=== PATIENT | male | born 1940 | race Caucasian/White ===

== ENCOUNTER 2024-02-09 09:58 | Emergency (ER) | payer MEDICARE, SELFPAY ==
[2024-02-09 10:01] VITALS: BP 207/86; PULSE 80; RESP 17; TEMP 36.8; O2SAT 98; BMI 29.6
[2024-02-09 10:05] VITALS: O2SAT 98
--- NOTE | 2024-02-09 11:34 | CT_ITS ---
INDICATION: head trauma EXAMINATION: CT BRAIN - CT Head or Brain W/O Contrast Injection TECHNIQUE: Multiple axial images were obtained of the head without intravenous contrast. The protocol utilizes one or more of the following dose reduction techniques: automated exposure control, adjustment of mA and/or kV according to patient size,and/or use of iterative reconstruction technique. IV Contrast dosage and agent: None. RADIATION DOSAGE (If Supplied By Facility): CTDIvol = ( 44.99 ) mGy, DLP = ( 779.24 ) mGycm COMPARISON: No relevant prior comparison study available FINDINGS: BRAIN PARENCHYMA: No intra- or extra-axial hemorrhage. No evidence of acute infarct. No intracranial mass or mass effect. There is preservation of the baldwin/white matter interface. Posterior fossa structures are unremarkable. CSF SPACES: Appropriate for age. No hydrocephalus. Basal cisterns are patent. CALVARIUM, SKULL BASE, PARANASAL SINUSES AND MASTOID AIR CELLS: Clear. No discrete lytic or blastic abnormalities. There is a small soft tissue defect associated with a focus of subcutaneous air overlying the left frontal calvarium with recent trauma. There is a nasal bone deformity. ORBITS: Both globes, extraocular muscles, optic nerves and retrobulbar fat appear unremarkable. ASPECTS Score for Acute Strokes: 10 CT/Brain/Head without Contrast IMPRESSION: No acute intracranial process. Nasal bone fracture. Electronically Signed: Rosa Trevizo MD at 12:24 EDT ,
--- NOTE | 2024-02-09 11:38 | EDS_ITS ---
HPI HPI - Fall History of Present Illness Chief Complaint: Fall Informant: patient Occured/Mechanism Occurred: Today Mechanism/Context: Yes same level fall and Yes trip Usually ambulates: Without assistance Pain/Injury Pain Location: head and face Quality of Pain: Dull Current Severity: Mild Maximum Severity: Mild Associated Symptoms Associated Symptoms: Negative for Parasthesias, Weakness, Loss of function, Inability to ambulate or Loss of consciousness Narrative Narrative: 83-year-old male was in his shop and he tripped and fell on the doorway. Fell and injured his forehead causing a laceration and injury to bridge of his nose. Denies any LOC or headache. Denies neck, chest or abdominal pain. Denies any hip pain. He states he is not on any blood thinners. Unsure of his last tetanus. Tetanus Immunization: Unknown Prior similar symptoms: No Recent Illness/Hospitalization: No PFSH PFSH Medical History no medical history no medical history Home Medications ?Medication ?Instructions ?Recorded ?Last Taken ?Type No Known/Unobtainable [No Known 09/15/15 Unknown History Home Medications] Allergy/AdvReac Type Severity Reaction Status Date / Time No Known Allergies Allergy Verified 02/09/24 10:09 Social History Smoking Status: Never smoker ROS ROS ED ROS Narrative Denies recent illness. Constitutional Constitutional ED: Denies chills or fever(s) Eyes Eyes: Denies blurry vision ENT ENT ED: Denies ear pain Cardiovascular Cardiovascular: Denies chest pain Respiratory/Chest Respiratory/Chest: Denies cough or dyspnea Gastrointestinal Gastrointestinal: Denies abdominal pain, constipation or diarrhea Genitourinary Genitourinary ED: Denies dysuria or hematuria Musculoskeletal Musculoskeletal: Denies arthralgias, back pain or myalgias Integumentary Denies abscess Neurologic Neurologic: Denies headache(s) Psychiatric Psychiatric: Denies anxiety Endocrine Endocrinology: Denies polydipsia Hematologic/Lymphatic Hematologic/Lymphatic: Denies easy bleeding Allergic/Immunologic Allergic/Immunologic ED: Denies mouth swelling EXAM Physical Exam Narrative Exam Narrative: 83-year-old male vital signs are stable afebrile. H EENT exam is guided dressing on his forehead he has a stellate laceration midportion of his forehead. Mild bleeding. It will need repaired. Appears round reactive light. Scalp is nontender without hematoma or laceration. His nose is not particularly tender is mildly swollen and bruised. There is a superficial laceration on the bridge of his nose that does not need to be repaired. No dental injury. Upper and lower dentures. Otherwise his face is nontender. Neck and trachea nontender. Back and spine nontender. No signs of trauma. Lungs clear to auscultation bilaterally. Heart regular rate and rhythm no murmur. Chest wall and ribs nontender. Abdomen soft nontender. No peritoneal signs. Pelvic girdle intact. Moving all 4 extremities. Nontender no deformity. 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 Normal range of motion both upper and lower extremities. Normal flexion extension of both hips knees and ankles. Normal dorsi plantarflexion. Hips are nontender. No shortening or rotation. Neurologically he is awake and alert. Answering questions following commands. Const Vital Signs: 02/09/24 10:01 02/09/24 10:05 02/09/24 12:09 Temperature 98.3 F Temperature Source Oral Pulse Rate 80 71 Respiratory Rate 17 22 H Respiratory Effort Normal Respiratory Depth Normal Respiratory Pattern Normal Blood Pressure 207/86 H 225/85 H Blood Pressure Mean 126 131 Pulse Ox 98 98 97 Oxygen Delivery Method Room Air Room Air Room Air 02/09/24 14:00 Temperature Temperature Source Pulse Rate Respiratory Rate 18 Respiratory Effort Respiratory Depth Respiratory Pattern Blood Pressure 190/115 H Blood Pressure Mean 140 Pulse Ox Oxygen Delivery Method Room Air Positive well nourished and well developed; Negative for cachectic, contractures or unkempt General Appearance ED: well developed and NAD; Negative for unkempt, cachectic or contractures Nutritional Appearance: Negative for cachectic HEENT Reports normocephalic HEENT Narrative: Mid forehead stellate laceration on the repaired. Nasal bridge superficial laceration. Mild swelling and bruising. No significant nasal tenderness or deformity. No bleeding from his nares. trauma and tenderness; Negative for atraumatic Eyes PERRL and EOMs intact bilaterally Neck full ROM, no lymphadenopathy and supple General: Negative for tenderness Chest Wall inspection of chest normal and palpation of chest normal Resp normal respiratory effort, no retractions and clear to auscultation bilaterally Cardio regular rate, regular rhythm, S1 normal heart sound, S2 normal heart sound and no murmurs GI non-tender, non-distended and no masses Palpation: soft; Negative for guarding or rebound tenderness present Back/Spine no CVA tenderness General Back: Negative for CVA tenderness Cervical Spine: Negative for cervical spine tenderness Thoracic Spine / Upper Back: Negative for ROM limited Lumbar Spine / Lower Back: Negative for lumbar spinal tenderness Extremity Extremity Narrative: Moving all 4 extremities. 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 Normal dorsi plantarflexion. Nontender. No shortening. Normal range of motion. Neuro oriented x3, moves all extremities, no focal motor deficits and no sensory d eficits noted Brock Coma Scale: document GCS findings Spontaneous Obeys Commands Oriented 15 Sensorium / Orientation: alert, oriented to person, oriented to place and oriented to time; Negative for orientation impaired or confused Motor Exam: strength 5/5 throughout Psych mental status grossly normal and thought process normal Appearance: Negative for unkempt Attitude: No agitated Mood & Affect: Negative for depressed, anxious or tearful Skin Lesions: no lesions Rashes: no rashes Trauma: laceration stellate MDM MDM MDM Narrative Medical decision making narrative: 83-year-old male tripped and fell landing on cement causing a forehead laceration superficial laceration of bridge of his nose. CT of the brain to be obtained to rule out skull fracture or intracranial bleed. He will need to have this forehead laceration repaired. Tetanus will be updated. He does not have any other injuries does need any other x-rays. Repeat exam patient is doing well at 2:55 PM. I suture repaired his forehead. Good approximation and wound closure. He was instructed on wound care and outpatient follow-up that the stitches taken out in 7 to 10 days. He knows return if worse. Radiography Diagnostic Testing: Clinical Impression(s) from Imaging Studies Brain CT 02/09/24 11:34 IMPRESSION: No acute intracranial process. Nasal bone fracture. Electronically Signed: Rosa Trevizo MD at 12:24 EDT , Procedures Lacerations Stellate forehead laceration with repair:: Length: 6 in Prep: Betadine and Shure-Clens Laceration repair: Irrigated, Lidocaine with epi, Local, Skin sutures and Wound explored Number of Sutures/[place]: 10 Suture Information: Ethilon and 4-0 Comment: Stellate forehead laceration. Local anesthetic with lidocaine with epinephrine. Cleaned with Shur-Clens. And iodine. Washed and irrigated. Explored. Involve the skin and subcu tissue. Closed using 10 simple interrupted 4-0 Ethilon sutures. Proper hemostasis wound closure obtained. Patient tolerated procedure well. He was instructed on wound care suture minimal Sundays and head injury instructions. Discharge Plan Triage Chief Complaint: Fall ED Provider: Sukhi Ramirez Dx/Rx/DC Orders Clinical Impression: Fall, Forehead laceration, CHI (closed head injury) Instructions: ED Head Injury (Adult), ED Laceration, All Closures Prescriptions: No Action No Known Home Medications Primary Care Provider: Sotero Sarabia Referrals: Sotero Sarabia MD [Primary Care Provider] - 7 Days for suture removal Activity Restrictions/Additional Instructions: Stitches out in 7 to 10 days. Ice to the area. Tylenol for pain. Clean wound daily with soap and water. Apply antibiotic ointment daily. Return if intractable vomiting or not acting right. welcome to 80s today were Print Language: Macedonian Disposition Disposition: Home, Self Care
[2024-02-09] MEDS: Lidocaine 1% /Epi 1:100 (20ml) 20 ML Vial 10 ML INFILT (11:46)
--- NOTE | 2024-02-09 11:52 | ED.RN ---
Patient transported to CT
[2024-02-09 12:09] VITALS: BP 225/85; PULSE 71; RESP 22; O2SAT 97
[2024-02-09 14:00] VITALS: BP 190/115; RESP 18
--- NOTE | 2024-02-09 14:39 | ED.RN ---
Dr. Ramirez bedside
[2024-02-09 15:18] VITALS: BP 190/115; PULSE 71; RESP 18; TEMP 36.8; O2SAT 97
== END 2024-02-09 15:18 | disposition home or self-care (01) ==
PROVIDERS: Emergency Provider Emergency Medicine; PCP Family Medicine; Visit Provider Emergency Medicine
DX: S02.2XXA Fracture of nasal bones, initial encounter for closed fracture (principal); S01.81XA Laceration without foreign body of other part of head, initial encounter; W18.09XA Striking against other object with subsequent fall, initial encounter; Z23 Encounter for immunization
CPT/HCPCS: 12016; 70450; 90715; 99284

== ENCOUNTER 2025-02-11 12:34 | Inpatient (IN) | payer MEDICARE, SELFPAY ==
[2025-02-11] VITALS (22 sets, daily range): BP systolic 131–263; BP diastolic 66–206; PULSE 54–76; RESP 14–22; TEMP 36.7–37.2; O2SAT 94–100; BMI 29.2; BMI 27.8
--- NOTE | 2025-02-11 12:40 | EKG12_ITS ---
Test Reason : NEURO
[2025-02-11 12:50] LABS: Hematocrit 39.2 % (40-54); Hemoglobin 12.7 g/dL (13.0-16.5); Immature Granulocytes Count 0.040 X10^3/uL (0.0-0.0); Mean Corp Hgb Conc 32.4 g/dL (32-36); Mean Corpuscular Volume 85.2 fL (80-94); Mean Platelet Vol. 11.6 fl (6.2-12.0); NRBC Flagged by Analyzer 0 % (0-5); Platelet Count 258 K/mm3 (150-450); RBC Distribution Width CV 14.4 % (11.6-14.6); RBC Distribution Width SD 44.6 fl (35.1-43.9); Red Blood Count 4.60 M/mm3 (4.6-6.2); White Blood Count 7.7 K/mm3 (4.4-11.0)
--- NOTE | 2025-02-11 12:52 | ED.VIS.STROK ---
HPI History of Present Illness Chief Complaint: Neuro S/Sx Informant: patient and family Onset/Context/Timing Onset: Today and Yesterday Context: Gradual Onset Timing: Continuous Quality and Location: Positive for Expressive Aphasia; Negative for Right Facial Droop, Right Arm Parasthesia, Left Leg Parasthesia, Left Leg Weakness or Difficulty with Ambulation Current Severity: Mild Maximum Severity: Mild Associated Symptoms Associated Symptoms: Negative for Headache, Nausea, Vomiting or Chest Pain Narrative Narrative: 84-year-old male no significant past medical history other erectile dysfunction. He has taken some [id number] vitamins and spri-[id number]-[id number] medication that he gets online. Patient states that he drove the [employer] to and from [employer] yesterday. Last evening somewhere around 7:38 he started having some discomfort in his right eye. Tingling in his left hand and some difficulty expressing the words that he wanted to. He denies any headache. He denies any head trauma. He denies ever previously having a stroke. He denies any weakness of his upper or lower extremities. Prior similar symptoms: No Recent Illness/Hospitalization: No PFSH PFSH Medical History no medical history Home Medications ?Medication ?Instructions ?Recorded ?Last Taken ?Type No Known/Unobtainable [No Known 09/15/15 Unknown History Home Medications] Allergy/AdvReac Type Severity Reaction Status Date / Time No Known Allergies Allergy Verified 02/11/25 12:41 Family History no significant family his Surgical History no surgical history Social History Smoking Status: Never smoker ROS ROS ED ROS Narrative Denies recent illness. Constitutional Constitutional ED: Denies chills or fever(s) Eyes Eyes: Denies blurry vision ENT ENT ED: Denies ear pain Cardiovascular Cardiovascular: Denies chest pain Respiratory/Chest Respiratory/Chest: Denies cough Gastrointestinal Gastrointestinal: Denies abdominal pain Genitourinary Genitourinary ED: Denies dysuria or hematuria Musculoskeletal Musculoskeletal: Denies arthralgias Integumentary Denies abscess Neurologic Neurologic: Denies headache(s) Psychiatric Psychiatric: Denies anxiety Endocrine Endocrinology: Denies polydipsia, polyphagia or polyuria Hematologic/Lymphatic Hematologic/Lymphatic: Denies easy bleeding Allergic/Immunologic Allergic/Immunologic ED: Denies mouth swelling or urticaria EXAM Physical Exam Narrative Exam Narrative: Well-appearing 84-year-old male. Initial blood pressure 263/106. He does not look septic toxic he is in no acute distress. H EENT exam pupils round reactive light. Extra motions are intact. He has glasses on. He denies any change in his vision. No facial droop. His words are clear though not slurred and he might be having a very mild dysarthria. Neck nontender no lymphadenopathy. Lungs clear to auscultation. Heart regular rhythm rate about 70 no murmur. Chest wall and ribs nontender. Abdomen soft nontender. Moving all 4 extremities. 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 Dorsi plantarflexion intact. Neurologically he is awake and alert. Answering questions following commands. No slurred speech. No facial droop possibly a mild dysarthria. He has good equal symmetrical tractor sweeper driver strength. Dorsi plantarflexion intact. No drift of either upper or lower extremities. Fingertip to nose within normal limits. NIH at worst is a 1. Const Vital Signs: 02/11/25 12:37 02/11/25 12:40 02/11/25 12:54 Temperature 98.2 F Temperature Source Oral Pulse Rate 73 Respiratory Rate 16 17 Blood Pressure 263/106 H Blood Pressure Mean 158 Pulse Ox 97 98 98 Oxygen Delivery Method Room Air Room Air 02/11/25 13:03 02/11/25 13:15 02/11/25 13:17 Temperature Temperature Source Pulse Rate 64 65 Respiratory Rate 19 H 18 Blood Pressure 237/91 H Blood Pressure Mean 133 Pulse Ox 100 Oxygen Delivery Method 02/11/25 13:30 02/11/25 13:34 02/11/25 13:45 Temperature Temperature Source Pulse Rate 65 63 Respiratory Rate 18 16 Blood Pressure 242/206 H 227/84 H 218/91 H Blood Pressure Mean 218 126 129 Pulse Ox Oxygen Delivery Method 02/11/25 13:50 02/11/25 14:15 02/11/25 14:30 Temperature Temperature Source Pulse Rate 65 59 L Respiratory Rate 22 H 18 Blood Pressure 218/91 H 195/81 H 213/78 H Blood Pressure Mean 133 114 115 Pulse Ox Oxygen Delivery Method 02/11/25 14:46 Temperature Temperature Source Pulse Rate 62 Respiratory Rate 14 Blood Pressure 182/78 H Blood Pressure Mean 112 Pulse Ox 98 Oxygen Delivery Method Room Air Positive well nourished and well developed; Negative for cachectic, contractures or unkempt General Appearance ED: well developed and NAD; Negative for unkempt, cachectic or contractures Nutritional Appearance: Negative for cachectic HEENT Reports moist mucous membranes atraumatic Eyes PERRL and EOMs intact bilaterally Neck no lymphadenopathy, supple and no JVD Chest Wall inspection of chest normal and palpation of chest normal Resp normal respiratory effort and clear to auscultation bilaterally Cardio no murmurs Rate: regular rate Rhythm: regular rhythm GI normal to inspection, nondistended, normoactive bowel sounds, soft to palpation, non-tender, non-distended and no masses Auscultation: normoactive bowel sounds Palpation: Negative for tender, guarding or rebound tenderness present Back/Spine no CVA tenderness Extremity normal to inspection General Extremety ED: Negative for deformity or edema General Extremity: Negative for deformity or edema Neuro oriented x3, CN's II-XII intact bilaterally and no sensory deficits noted Sensorium / Orientation: alert, oriented to person, oriented to place and oriented to time Cranial Nerves: other No slurred speech. Possibly a very minor dysarthria. He is easily understood. Motor Exam: strength 5/5 throughout and strength abnormal Psych mental status grossly normal Appearance: Negative for unkempt Skin no wounds General Skin Exam: Negative for jaundice Lesions: no lesions Rashes: no rashes MDM MDM MDM Narrative Medical decision making narrative: 84-year-old male with very slight neurological symptoms of possible dysarthria. Exam is benign. NIH is between 0 and 1. Symptoms began about 16+ hours yesterday. He is not a TNK candidate. He will be put through a stroke workup. Repeat exam at 3:03 PM patient doing well. No change on repeat neurologic exam. Given his symptoms patient will be admitted for further imaging for further evaluation for possible stroke. History & Record Review Discussion w/independent historian: Patient and Family Additional record(s) reviewed:: Prior inpatient record Lab Data Attestation: I reviewed the patient's lab results. Lab results narrative: CBC shows a white count of 7. H&H 12 and 39. Platelets 258. Chemistries show a gap of 12. BUN and creatinine 24 and 1.43. Glucose 171. Initial troponin 70. CT and CTA show no obvious stroke. No bleed. There is a subtle hypodensity in the right ana which could be stroke. Labs: Laboratory Results - last 24 hr 02/11/25 02/11/25 12:25 12:59 WBC 7.7 RBC 4.60 Hgb 12.7 L Hct 39.2 L MCV 85.2 MCH 27.6 MCHC 32.4 RDW Std Deviation 44.6 H RDW Coeff of Lisa 14.4 Plt Count 258 MPV 11.6 Immature Gran % (Auto) 0.500 Neut % (Auto) 75.7 H Lymph % (Auto) 16.9 L Teller % (Auto) 5.9 Eos % (Auto) 0.5 Baso % (Auto) 0.5 Absolute Neuts (auto) 5.8 Absolute Lymphs (auto) 1.30 Nucleated RBC % 0 PT 13.7 INR 1.0 APTT 28.3 Sodium 137 Potassium 4.5 Chloride 100 Carbon Dioxide 24.6 Anion Gap 12 BUN 24 H Creatinine 1.43 H Estim Creat Clear Calc 46.90 L Est GFR (MDRD) Non-Af 49 L BUN/Creatinine Ratio 16.4 Glucose 171 H Calcium 9.9 Troponin T High Sens 70 H* POC Glucose 160 H Radiography Diagnostic Testing: Clinical Impression(s) from Imaging Studies Brain CT 02/11/25 13:07 IMPRESSION: 1. No evidence of intracranial hemorrhage or acute territorial ischemia. Subtle hypodensity in the right ana represents possible acute, lacunar type infarct. Correlate with presentation. 2. Changes of chronic microvascular ischemia and volume loss. Stroke Alert: As above The critical findings in the findings and impression above were relayed directly by me by telephone to Sukhi Ramirez on 02/11/2025 at 1:37 pm with readback verification. Reading Location: [employer] Head/Neck CTA 02/11/25 13:07 IMPRESSION: 1. No large vessel occlusion. No aneurysm or stenosis. 2. Anatomic variants include: origin right LICSW. Right vertebral artery with PICA termination. Hypoplastic or aplastic right P1 segment and right A1 segment. 3. Tiny focus of ground-glass opacity right lung apex. Atelectasis versus pneumonitis. 4. Degenerative changes cervical spine. Reading Location: [id number] Rhythm Strip Rhythm Strip: Sinus Rhythm Rate: 73 Ectopy: None EKG Initial EKG: Interpretation: Sinus Rhythm and No Acute Injury Pattern Comments: Normal sinus rhythm rate of 73 no acute signs of [place] or ischemia. 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 Discharge Plan Dx/Rx/DC Orders Clinical Impression: Dysarthria, Stroke Disposition Disposition: Acute Care Hospital [facility] NIHSS NIHSS 1a. Level of Consciousness: 0 - Alert; keenly responsive 1b. LOC Questions: 0 - Answers BOTH questions correctly 1c. LOC Commands: 0 - Performs BOTH tasks correctly 2. Best Gaze: 0 - Normal 4. Facial Palsy: 0 - Normal symmetrical movements 5a. Left Arm: 0 - No drift; arm holds 90 (or 45) degrees for full 10 seconds 5b. Right Arm: 0 - No drift; arm holds 90 (or 45) degrees for full 10 seconds 6a. Left Le - No drift; leg holds 30-degree position for full 5 seconds 6b. Right Le - No drift; leg holds 30-degree position for full 5 seconds 7. Limb Ataxia: 0 - Absent 8. Sensory: 0 - Normal; no sensory loss 10. Dysarthria: 1 = [id number] dysarthria; (1) Total: 1 Stroke Questions Stroke Team Activated: No Reviewed Inclusion/Exclusion criteria: Yes
[2025-02-11 12:58] LABS: Prothrombin Time (Protime)PT. 13.7 SECONDS (11.7-14.9)
[2025-02-11 13:00] LABS: Partial Thromboplast Time 28.3 Seconds (24.1-36.2)
--- NOTE | 2025-02-11 13:07 | CT_ITS ---
PROCEDURE: CT/STROKE Brain/Head without Cont
--- NOTE | 2025-02-11 13:07 | CT_ITS ---
PROCEDURE: CT/STROKE CTA Head AND Neck W/Con
[2025-02-11 13:41] LABS: Anion Gap 12 (5-15); BUN 24 mg/dL (4-19); BUN/Creat Ratio 16.4 RATIO (10-20); Calcium,Total 9.9 mg/dL (7.6-11.0); Carbon Dioxide 24.6 mmol/L (21.0-32.0); Chloride 100 mmol/L (98-108); Estimated Creatinine Clearance 46.90 ml/min (50-250); Glucose 171 mg/dL (70-99); Potassium 4.5 mmol/L (3.3-5.1)
[2025-02-11 13:51] LABS: Troponin T High Sensitivity 70 ng/L (<=22)
[2025-02-11 15:38] LABS: Troponin T High Sens 2 HR 69 ng/L (<=22)
[2025-02-11 16:41] LABS: Troponin T High Sens 4 HR 48 ng/L (<=22)
--- NOTE | 2025-02-11 17:01 | PCM.HP.STD ---
HPI - General General Date of Admission: 02/11/25 Date of Service: 02/11/25 Chief Complaint: Neurologic abnormalities HPI Narrative MERCED ERICKSON, is a 84-year-old male history of hypertension not on medications presented to [facility] ED 02/11/2025 due to difficulty talking, dysarthria, and tingling in his left hand. Patient was a stroke call in the ED but was outside of the window for TNK as last known well was around [address] head with no evidence of intracranial hemorrhage, subtle hypodensity in right ana represents possible acute lacunar type infarct but not definitive. CTA with no LVO but some noted anatomic variants. Vitals upon arrival with temp 98.2, heart rate 73, blood pressure 263/106, respiratory rate 16 and pulse ox 97% on room air. Hemoglobin of 12.7 and normal white blood cell count. BMP with a BUN of 24 and a creatinine of 1.43 with no other recent values available. First troponin 78 with a repeat of 69 and subsequent 48. TSH 4.6 and hemoglobin A1c found to be 8.1. Hospitalist contacted for admission. Patient evaluated at bedside and is somewhat of a poor historian but essentially drives for the admission yesterday drove to [place] and back and around 7:30 PM he noticed headache in the front of his head and may be some discomfort behind his right eye, went on to develop left hand tingling and felt he was having difficulty getting words out, also noted that when he went to get out of his car he was having a hard time walking which is abnormal for him. He came in today due to family member being concerned, reports may be some residual tingling in the left fingers and a little bit of a frontal headache but no further eye complaints denied any visual complaints. Discussed significantly elevated blood pressure and family reports that he does have history of high blood pressure but does not take any medicine, he denies any chest pain or shortness of breath at this time. Patient denies any focal weakness or other neurocomplaints. Does have some chronic tingling in right hand and legs due to neuropathy but he reports the tingling in the left hand was what was new for him [facility] Medical History no medical history Home Medications ?Medication ?Instructions ?Recorded ?Last Taken ?Type No Known/Unobtainable [No Known 09/15/15 Unknown History Home Medications] Allergy/AdvReac Type Severity Reaction Status Date / Time No Known Allergies Allergy Verified 02/11/25 12:41 Family History no significant family his Surgical History no surgical history Social History Smoking Status: Never smoker ROS ROS Narrative General: Denies fever/chills HENT: Little bit of a frontal headache, denies stuffy nose, denies sore throat EYES: Denies changes in vision, had a little bit of pain behind his right eye that is resolved Resp: Denies cough, denies shortness of breath Cardiac: Denies chest pain GI: Denies abdominal pain, denies changes in bowel, denies nausea/vomiting : Denies changes in urination Extremity: Has some swelling bilateral lower extremities which is not necessarily new MSK: Denies any focal weakness Neuro: Some chronic numbness and tingling in right fingers and legs, had been having some tingling in the left fingers as well since last night but has not been improving Heme: Denies any bleeding or bruising Skin: Has some chronic lower extremity changes Psychiatric: No complaints voiced Vital Signs Vital Signs Vital Signs: 02/11/25 12:37 02/11/25 12:40 02/11/25 12:54 Temperature 98.2 F Temperature Source Oral Pulse Rate 73 Respiratory Rate 16 17 Blood Pressure 263/106 H Blood Pressure Mean 158 Pulse Ox 97 98 98 Oxygen Delivery Method Room Air Room Air 02/11/25 13:03 02/11/25 13:15 02/11/25 13:17 Temperature Temperature Source Pulse Rate 64 65 Respiratory Rate 19 H 18 Blood Pressure 237/91 H Blood Pressure Mean 133 Pulse Ox 100 Oxygen Delivery Method 02/11/25 13:30 02/11/25 13:34 02/11/25 13:45 Temperature Temperature Source Pulse Rate 65 63 Respiratory Rate 18 16 Blood Pressure 242/206 H 227/84 H 218/91 H Blood Pressure Mean 218 126 129 Pulse Ox Oxygen Delivery Method 02/11/25 13:50 02/11/25 14:15 02/11/25 14:30 Temperature Temperature Source Pulse Rate 65 59 L Respiratory Rate 22 H 18 Blood Pressure 218/91 H 195/81 H 213/78 H Blood Pressure Mean 133 114 115 Pulse Ox Oxygen Delivery Method 02/11/25 14:45 02/11/25 14:46 02/11/25 15:00 Temperature Temperature Source Pulse Rate 63 62 58 L Respiratory Rate 22 H 14 19 H Blood Pressure 182/78 H 182/78 H 210/88 H Blood Pressure Mean 107 112 124 Pulse Ox 98 98 Oxygen Delivery Method Room Air 02/11/25 16:00 02/11/25 16:59 Temperature Temperature Source Pulse Rate 58 L 58 L Respiratory Rate 16 18 Blood Pressure 160/99 H 214/94 H Blood Pressure Mean 119 134 Pulse Ox 99 99 Oxygen Delivery Method Room Air Room Air Weight Weight: 95.2 kg Body Mass Index (BMI) 29.2 Physical Exam Narrative General: Alert, poor historian, no acute distress HEENT: Atraumatic Eyes: Anicteric, normal conjunctiva, extraocular movements intact, pupils equal Neck: Supple Respiratory: Clear to auscultation bilaterally, normal respiratory effort Cardiovascular: Regular rate and rhythm GI: Soft, nontender, nondistended Extremities: Does have 1+ bilateral lower extremity edema Musculoskeletal: Strength 5 out of 5 in right upper extremity, 5 out of 5 left upper extremity, 5 out of 5 right lower extremity, 5 out of 5 left lower extremity Neuro: Did not report any difference in sensation on testing between upper extremities and lower extremities respectively, possibly minimal flattening of left lower face but able to puff up cheeks without difficulty, otherwise cranial nerves II through XII intact, [id number] without significant difficulty bilaterally Skin: No rashes appreciated Psych: Cooperative Results Lab / Micro Data 02/11/25 12:25 02/11/25 12:25 Labs: Laboratory Results - last 24 hr 02/11/25 12:25: WBC 7.7, RBC 4.60, Hgb 12.7 L, Hct 39.2 L, MCV 85.2, MCH 27.6, MCHC 32.4, RDW Std Deviation 44.6 H, RDW Coeff of Lisa 14.4, Plt Count 258, MPV 11.6, Immature Gran % (Auto) 0.500, Neut % (Auto) 75.7 H, Lymph % (Auto) 16.9 L, [place] % (Auto) 5.9, Eos % (Auto) 0.5, Baso % (Auto) 0.5, Absolute Neuts (auto) 5.8, Absolute Lymphs (auto) 1.30, Nucleated RBC % 0, PT 13.7, INR 1.0, APTT 28.3, Sodium 137, Potassium 4.5, Chloride 100, Carbon Dioxide 24.6, Anion Gap 12, BUN 24 H, Creatinine 1.43 H, Estim Creat Clear Calc 46.90 L, Est GFR (MDRD) Non-Af 49 L, BUN/Creatinine Ratio 16.4, Glucose 171 H, Calcium 9.9, Troponin T High Sens 70 H* 02/11/25 12:59: POC Glucose 160 H 02/11/25 14:58: Troponin T Hi Sens 2 Hr 69 H* 02/11/25 16:17: Troponin T Hi Sens 4Hr 48 H Rhythm Strip Rhythm Strip: Sinus Rhythm Rate: 73 Ectopy: None Imaging Radiology Impression Brain CT 02/11/25 13:07 IMPRESSION: 1. No evidence of intracranial hemorrhage or acute territorial ischemia. Subtle hypodensity in the right ana represents possible acute, lacunar type infarct. Correlate with presentation. 2. Changes of chronic microvascular ischemia and volume loss. Stroke Alert: As above The critical findings in the findings and impression above were relayed directly by me by telephone to Sukhi Ramirez on 02/11/2025 at 1:37 pm with readback verification. Reading Location: [facility] Head/Neck CTA 02/11/25 13:07 IMPRESSION: 1. No large vessel occlusion. No aneurysm or stenosis. 2. 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 Right vertebral artery with PICA termination. Hypoplastic or aplastic right P1 segment and right A1 segment. 3. Tiny focus of ground-glass opacity right lung apex. Atelectasis versus pneumonitis. 4. Degenerative changes cervical spine. Reading Location: [facility] Assessment & Plan Assessment/Plan (1) Neurologic abnormality: PLAN: Plan # Left hand tingling, dysarthria, difficulty walking -Admit to tele -CT head w/ subtle hypodensity in right ana which could be an acute lacunar type infarct but unclear, no hemorrhage -CTA head and neck with no LVO -MRI ordered -NIH q4hr -asa, statin -Echo -PT/OT/Speech eval -Teleneuro consult ordered -Hold BP medications to allow for permissive hypertension for 24 hours unless SBP greater than 220 or DBP greater than 120 or until stroke is ruled out # Hypertensive emergency - Patient presented with blood pressure in the 260s with a headache - Troponin 78 which decreased to 69 and subsequently 48 - Denied any chest pain but improved with improving blood pressure - Managing patient with permissive hypertension but blood pressure has significantly improved down to 145/79, supportive care -EKG in ED 73 NSR, RBBB, LAFB -Echo ordered as above -Will likely ultimately need to start pt on antihypertensives before or on discharge #Type 2 diabetes mellitus -Hemoglobin 8.1, not on anything at home and no known history of diabetes -Glucose checks and sliding scale insulin - Can likely start on metformin on discharge or alternative agent and follow-up with a primary care provider on discharge #DVT ppx: SCDs Nida Kaur MD Charges/Coding Visit Charges Inpatient E&M: 25818 Init Hosp L2
--- NOTE | 2025-02-11 17:08 | ECHOD_ITS ---
Reason For Study ECHO/Echo Complete
[2025-02-11] MEDS: 0.9% Saline Lock 10 ML Syringe IV (21:11)
[2025-02-12 00:35] VITALS: BMI 27.8
[2025-02-12 02:00] VITALS: BP 166/61; PULSE 55; RESP 16; TEMP 36.3; O2SAT 97
[2025-02-12 04:33] LABS: Hematocrit 32.4 % (40-54); Hemoglobin 10.6 g/dL (13.0-16.5); Immature Granulocytes Count 0.030 X10^3/uL (0.0-0.0); Mean Corp Hgb Conc 32.7 g/dL (32-36); Mean Corpuscular Volume 85.5 fL (80-94); Mean Platelet Vol. 12.4 fl (6.2-12.0); NRBC Flagged by Analyzer 0 % (0-5); Platelet Count 201 K/mm3 (150-450); RBC Distribution Width CV 14.6 % (11.6-14.6); RBC Distribution Width SD 45.8 fl (35.1-43.9); Red Blood Count 3.79 M/mm3 (4.6-6.2); White Blood Count 7.8 K/mm3 (4.4-11.0)
[2025-02-12 05:01] LABS: Anion Gap 10 (5-15); BUN 29 mg/dL (4-19); BUN/Creat Ratio 18.4 RATIO (10-20); Calcium,Total 9.0 mg/dL (7.6-11.0); Carbon Dioxide 24.1 mmol/L (21.0-32.0); Chloride 103 mmol/L (98-108); Cholesterol 199 mg/dL (<=200); Estimated Creatinine Clearance 41.73 ml/min (50-250); Glucose 156 mg/dL (70-99); Low Density Lipoprotein Calc. 126 mg/dL; Potassium 4.3 mmol/L (3.3-5.1); Triglycerides 123 mg/dL; Very Low Density Lipoprotein 25 mg/dL (5-40); cholesterol:hdl ratio screen 3.89
[2025-02-12 06:00] VITALS: BP 176/69; PULSE 55; RESP 16; TEMP 36.8; O2SAT 94
[2025-02-12 09:16] VITALS: BP 187/78; PULSE 54; RESP 18; TEMP 36.6; O2SAT 95
--- NOTE | 2025-02-12 10:00 | MRI_ITS ---
PROCEDURE: MRI/Brain without Contrast
--- NOTE | 2025-02-12 10:03 | CON.PCM.NE_ITS ---
Assessment and Plan: Stroke
--- NOTE | 2025-02-12 10:03 | STROKE.CONS ---
Assessment and Plan: Stroke Assessment/Plan MERCED ERICKSON is a 84 M with a history of hypertension not on medications presented to [facility] ED 02/11/2025 due to difficulty talking, dysarthria, and tingling in his left hand. Patient was a stroke call in the ED but was outside of the window for TNK as last known well was around [address] head with no evidence of intracranial hemorrhage, subtle hypodensity in right ana represents possible acute lacunar type infarct but not definitive. CTA with no LVO but some noted anatomic variants. Patient evaluated at bedside and is somewhat of a poor historian but essentially drives for the admission yesterday drove to [place] and back and around 7:30 PM he noticed headache in the front of his head and may be some discomfort behind his right eye, went on to develop left hand tingling and felt he was having difficulty getting words out, also noted that when he went to get out of his car he was having a hard time walking which is abnormal for him. He states he normalloy walks good but this thursday and this weekend has trouble Does have some chronic tingling in right hand and legs due to neuropathy but he reports the tingling in the left hand was what was new for him Neurological examination shows NIH 1. Neuroimaging shows nothing acute on CTH and CTA. MRI pending. Will await MRI and then make final recs. HPI Consult Data Date of Consult: 02/12/25 HPI Narrative HPI Narrative: MERCED ERICKSON, is a 84 M who presents [ ] [facility] Medical History no medical history Home Medications ?Medication ?Instructions ?Recorded ?Last Taken ?Type No Known/Unobtainable [No Known 09/15/15 Unknown History Home Medications] Allergy/AdvReac Type Severity Reaction Status Date / Time No Known Allergies Allergy Verified 02/11/25 12:41 Family History no significant family his Surgical History no surgical history Social History Smoking Status: Never smoker Vital Signs Vital Signs Vital Signs: 02/11/25 12:37 02/11/25 12:40 02/11/25 12:54 Temperature 98.2 F Temperature Source Oral Pulse Rate 73 Pulse Strength Respiratory Rate 16 17 Respiratory Effort Respiratory Depth Respiratory Pattern Blood Pressure 263/106 H Blood Pressure Mean 158 Blood Pressure Source Blood Pressure Position Blood Pressure Location Pulse Ox 97 98 98 Oxygen Delivery Method Room Air Room Air 02/11/25 13:03 02/11/25 13:15 02/11/25 13:17 Temperature Temperature Source Pulse Rate 64 65 Pulse Strength Respiratory Rate 19 H 18 Respiratory Effort Respiratory Depth Respiratory Pattern Blood Pressure 237/91 H Blood Pressure Mean 133 Blood Pressure Source Blood Pressure Position Blood Pressure Location Pulse Ox 100 Oxygen Delivery Method 02/11/25 13:30 02/11/25 13:34 02/11/25 13:45 Temperature Temperature Source Pulse Rate 65 63 Pulse Strength Respiratory Rate 18 16 Respiratory Effort Respiratory Depth Respiratory Pattern Blood Pressure 242/206 H 227/84 H 218/91 H Blood Pressure Mean 218 126 129 Blood Pressure Source Blood Pressure Position Blood Pressure Location Pulse Ox Oxygen Delivery Method 02/11/25 13:50 02/11/25 14:15 02/11/25 14:30 Temperature Temperature Source Pulse Rate 65 59 L Pulse Strength Respiratory Rate 22 H 18 Respiratory Effort Respiratory Depth Respiratory Pattern Blood Pressure 218/91 H 195/81 H 213/78 H Blood Pressure Mean 133 114 115 Blood Pressure Source Blood Pressure Position Blood Pressure Location Pulse Ox Oxygen Delivery Method 02/11/25 14:45 02/11/25 14:46 02/11/25 15:00 Temperature Temperature Source Pulse Rate 63 62 58 L Pulse Strength Respiratory Rate 22 H 14 19 H Respiratory Effort Respiratory Depth Respiratory Pattern Blood Pressure 182/78 H 182/78 H 210/88 H Blood Pressure Mean 107 112 124 Blood Pressure Source Blood Pressure Position Blood Pressure Location Pulse Ox 98 98 Oxygen Delivery Method Room Air 02/11/25 16:00 02/11/25 16:59 02/11/25 17:00 Temperature Temperature Source Pulse Rate 58 L 58 L 76 Pulse Strength Respiratory Rate 16 18 22 H Respiratory Effort Respiratory Depth Respiratory Pattern Blood Pressure 160/99 H 214/94 H 214/82 H Blood Pressure Mean 119 134 126 Blood Pressure Source Blood Pressure Position Blood Pressure Location Pulse Ox 99 99 Oxygen Delivery Method Room Air Room Air 02/11/25 17:16 02/11/25 18:30 02/11/25 19:35 Temperature 98.9 F 98.0 F Temperature Source Oral Pulse Rate 57 L 56 L Pulse Strength Respiratory Rate 18 18 Respiratory Effort Normal Non-Labored Respiratory Depth Normal Respiratory Pattern Normal Blood Pressure 172/82 H 145/79 H Blood Pressure Mean 112 101 Blood Pressure Source Monitor Blood Pressure Position Semi-Fowlers Blood Pressure Location Right Arm Pulse Ox 97 96 Oxygen Delivery Method Room Air Room Air 02/11/25 20:05 02/11/25 20:47 02/11/25 22:30 Temperature 98.1 F Temperature Source Oral Pulse Rate 54 L Pulse Strength Normal (2+) Respiratory Rate 16 Respiratory Effort Respiratory Depth Respiratory Pattern Blood Pressure 131/66 H Blood Pressure Mean 87 Blood Pressure Source Monitor Blood Pressure Position Semi-Fowlers Blood Pressure Location Left Arm Pulse Ox 97 94 Oxygen Delivery Method Room Air Room Air 02/12/25 02:00 02/12/25 02:10 02/12/25 06:00 Temperature 97.3 F L 98.3 F Temperature Source Temporal Oral Pulse Rate 55 L 55 L Pulse Strength Respiratory Rate 16 16 Respiratory Effort Normal Non-Labored Respiratory Depth Normal Respiratory Pattern Normal Blood Pressure 166/61 H 176/69 H Blood Pressure Mean 96 104 Blood Pressure Source Monitor Monitor Blood Pressure Position Semi-Fowlers Semi-Fowlers Blood Pressure Location Left Arm Left Arm Pulse Ox 97 94 Oxygen Delivery Method Room Air Room Air Room Air 02/12/25 08:46 02/12/25 09:16 Temperature 97.9 F Temperature Source Oral Pulse Rate 54 L Pulse Strength Respiratory Rate 18 Respiratory Effort Respiratory Depth Respiratory Pattern Blood Pressure 187/78 H Blood Pressure Mean 114 Blood Pressure Source Monitor Blood Pressure Position Semi-Fowlers Blood Pressure Location Right Arm Pulse Ox 95 Oxygen Delivery Method Room Air Room Air Weight Weight: 90.4 kg Body Mass Index (BMI) 27.8 EEG Results Procedure Details EEG Procedure Details: MERCED ERICKSON is a 84 year old M with a past medical history of , who presents for evaluation of Electroencephalogram on DATE at TIME Lab / Micro Data 02/12/25 03:30 02/12/25 03:30 Labs: Laboratory Results - last 24 hr 02/11/25 12:25: WBC 7.7, RBC 4.60, Hgb 12.7 L, Hct 39.2 L, MCV 85.2, MCH 27.6, MCHC 32.4, RDW Std Deviation 44.6 H, RDW Coeff of Lisa 14.4, Plt Count 258, MPV 11.6, Immature Gran % (Auto) 0.500, Neut % (Auto) 75.7 H, Lymph % (Auto) 16.9 L, [place] % (Auto) 5.9, Eos % (Auto) 0.5, Baso % (Auto) 0.5, Absolute Neuts (auto) 5.8, Absolute Lymphs (auto) 1.30, Nucleated RBC % 0, PT 13.7, INR 1.0, APTT 28.3, Sodium 137, Potassium 4.5, Chloride 100, Carbon Dioxide 24.6, Anion Gap 12, BUN 24 H, Creatinine 1.43 H, Estim Creat Clear Calc 46.90 L, Est GFR (MDRD) Non-Af 49 L, BUN/Creatinine Ratio 16.4, Glucose 171 H, Hemoglobin A1c 8.1 H, Calcium 9.9, Troponin T High Sens 70 H* 02/11/25 12:59: POC Glucose 160 H 02/11/25 14:58: Troponin T Hi Sens 2 Hr 69 H* 02/11/25 16:17: Troponin T Hi Sens 4Hr 48 H, TSH 4.690 H 02/11/25 21:03: POC Glucose 239 H 02/12/25 03:30: WBC 7.8, RBC 3.79 L, Hgb 10.6 L, Hct 32.4 L, MCV 85.5, MCH 28.0, MCHC 32.7, RDW Std Deviation 45.8 H, RDW Coeff of Lisa 14.6, Plt Count 201, MPV 12.4 H, Immature Gran % (Auto) 0.400, Neut % (Auto) 76.4 H, Lymph % (Auto) 14.8 L, [place] % (Auto) 7.2, Eos % (Auto) 0.9, Baso % (Auto) 0.3, Absolute Neuts (auto) 6.0, Absolute Lymphs (auto) 1.15, Nucleated RBC % 0, Sodium 138, Potassium 4.3, Chloride 103, Carbon Dioxide 24.1, Anion Gap 10, BUN 29 H, Creatinine 1.57 H, Estim Creat Clear Calc 41.73 L, Est GFR (MDRD) Non-Af 44 L, BUN/Creatinine Ratio 18.4, Glucose 156 H, Calcium 9.0, Triglycerides 123, Cholesterol 199, LDL Cholesterol, Calc 126, VLDL Cholesterol 25, HDL Cholesterol 51, Cholesterol/HDL Ratio 3.89, Free T4 0.80 02/12/25 06:09: POC Glucose 151 H Rhythm Strip Rhythm Strip: Sinus Rhythm Rate: 73 Ectopy: None Imaging Radiology Impression Brain CT 02/11/25 13:07 IMPRESSION: 1. No evidence of intracranial hemorrhage or acute territorial ischemia. Subtle hypodensity in the right ana represents possible acute, lacunar type infarct. Correlate with presentation. 2. Changes of chronic microvascular ischemia and volume loss. Stroke Alert: As above The critical findings in the findings and impression above were relayed directly by me by telephone to Sukhi Ramirez on 02/11/2025 at 1:37 pm with readback verification. Reading Location: [id number] Head/Neck CTA 02/11/25 13:07 IMPRESSION: 1. No large vessel occlusion. No aneurysm or stenosis. 2. 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 Right vertebral artery with PICA termination. Hypoplastic or aplastic right P1 segment and right A1 segment. 3. Tiny focus of ground-glass opacity right lung apex. Atelectasis versus pneumonitis. 4. Degenerative changes cervical spine. Reading Location: [id number] Active Medications Active Medications Active Medications: Current Medications Generic Name Dose Route Start Last Admin Trade Name Freq PRN Reason Stop Dose Admin Acetaminophen 650 mg 02/11/25 17:47 02/12/25 06:24 Acetaminophen 325 Mg Tablet PO 650 mg Q6H PRN PRN Administration Pain 1-10 Or Fever >100.7 Albuterol Sulfate 2.5 mg 02/11/25 17:47 Albuterol 2.5 Mg/3 Ml Vial.Neb. INHALATION Q2H PRN PRN SOB &/OR WHEEZING Aspirin 81 mg 02/12/25 08:00 02/12/25 07:41 Aspirin 81 Mg Tab.Chew PO 81 mg BREAKFAST ANITA Administration Atorvastatin Calcium 40 mg 02/11/25 22:00 02/11/25 21:11 Atorvastatin Calcium 40 Mg Tablet PO 40 mg QHS ANITA Administration Glucagon 1 mg 02/11/25 20:02 Glucagon 1 Mg/Ml Syringe IM X1 PRN Hypoglycemia Protocol Hydralazine HCl 5 mg 02/11/25 17:47 Hydralazine 20 Mg/Ml Vial IV 02/12/25 17:47 Q30M PRN maintain BP parameters with HR <60 Sodium Chloride 250 mls @ 15 mls/hr 02/11/25 18:43 IV .[id number] PRN Saline Flush Sodium Chloride 250 mls @ 15 mls/hr 02/11/25 18:43 IV .[id number] PRN Additional IVPB Infusion Dextrose 250 mls @ 0 mls/hr 02/11/25 20:02 Dextrose 10%-Water IV .Q0M PRN HYPOGLYCEMIA Protocol As Directed Insulin Human Lispro 0 unit 02/11/25 22:00 02/12/25 06:10 Insulin Lispro 100 Unit/Ml Insuln.Pen SC 1 units ACHS ANITA Administration Protocol Labetalol HCl 20 mg 02/11/25 12:39 02/11/25 14:42 Labetalol 20 Mg/4 Ml Vial IV 02/12/25 12:40 20 mg X1 PRN Administration BLOOD PRESSURE Labetalol HCl 10 - 20 mg 02/11/25 17:47 Labetalol 20 Mg/4 Ml Vial IV 02/12/25 17:47 Q10M PRN PRN maintain BP parameters with HR >/=60 Lorazepam 0.5 mg 02/11/25 17:47 Lorazepam 0.5 Mg Tablet PO X1 PRN Anxiety with MRI Melatonin 10 mg 02/11/25 17:47 Melatonin 10 Mg Tablet PO QHS PRN PRN INSOMNIA Ondansetron HCl 4 mg 02/11/25 17:47 Ondansetron 4 Mg/2 Ml Vial IV Q8H PRN PRN NAUSEA/VOMITING Senna/Docusate Sodium 2 tablet 02/11/25 17:47 Senna/Docusate Sodium 1 Tablet PO BID PRN PRN Constipation Sodium Chloride 10 - 40 ml 02/11/25 18:43 02/11/25 21:11 0.9% Saline Lock 10 Ml Syringe IV 10 ml UD PRN Administration SALINE FLUSH NIHSS NIHSS Nursing Documentation NIHSS Nursing Documentation: NIH Stroke Scale Start: 02/11/25 12:43 Freq: Status: Discharge Protocol: Activity Type Activity Date Activity User E-sign Co-sign Detail Recorded Client Recorded Date Recorded By Document 02/11/25 12:43 AC [id number] 02/11/25 12:44 AC 02/11/25 12:43 NIH Stroke Scale [NIHSS] A score of 0 is normal or asymptomatic . Total possible score is 42. Inpatient: RN or Physician to activate a stroke alert for onset of new stroke symptoms or with NIHSS increase >/= 3 points. Following change in neurological status, NIHSS will be performed per physician order or more frequently PRN. -1a. Level of Consciousness 0 - Alert; keenly responsive -1b. LOC Questions 0 - Answers BOTH questions correctly -1c. LOC Commands 0 - Performs BOTH tasks correctly -2. Best Gaze 0 - Normal -3. Visual 0 - No visual loss -4. Facial Palsy 0 - Normal symmetrical movements -5a. Left Arm 0 - No drift; arm holds 90 ( or 45) degrees for full 10 seconds -5b. Right Arm 0 - No drift; arm holds 90 ( or 45) degrees for full 10 seconds -6a. Left Leg 0 - No drift; leg holds 30- degree position for full 5 seconds -6b. Right Leg 0 - No drift; leg holds 30- degree position for full 5 seconds -7. Limb Ataxia 0 - Absent -8. Sensory 0 - Normal; no sensory loss -9. Best Language 0 - No aphasia; normal -10. Dysarthria 1 = Mild-to- moderate dysarthria; -11. Extinction and Inattention 0 - No abnormality -Total 1 Query Text:A score of 0 is normal or asymptomatic. Total possible score is 42 . ED: Notify Physician for NIHSS increase by > / = 3 points. Inpatient: RN or Physician to activate a stroke alert for NIHSS increase of > / = 3 points. NIHSS: Ischemic Stroke/TIA Start: 02/11/25 17:47 Text: For PCU Patients: NIH and Neuro Check every 4 Status: Active hours, PRN and with change in RN caregiver. Freq: [id number] Protocol: Activity Type Activity Date Activity User E-sign Co-sign Detail Recorded Client Recorded Date Recorded By Document 02/12/25 09:15 KIKI [id number] 02/12/25 09:16 KIKI 02/12/25 09:15 -1a. Level of Consciousness 0 - Alert; keenly responsive -1b. LOC Questions 0 - Answers BOTH questions correctly -1c. LOC Commands 0 - Performs BOTH tasks correctly -2. Best Gaze 0 - Normal -3. Visual 0 - No visual loss -4. Facial Palsy 1 - Minor paralysis ( flattened nasolabial fold , asymmetry on smiling) -5a. Left Arm 0 - No drift; arm holds 90 ( or 45) degrees for full 10 seconds -5b. Right Arm 0 - No drift; arm holds 90 ( or 45) degrees for full 10 seconds -6a. Left Leg 0 - No drift; leg holds 30- degree position for full 5 seconds -6b. Right Leg 0 - No drift; leg holds 30- degree position for full 5 seconds -7. Limb Ataxia 0 - Absent -8. Sensory 1 - Mild-to- moderate sensory loss; -9. Best Language 0 - No aphasia; normal -10. Dysarthria 1 = Mild-to- moderate dysarthria; -11. Extinction and Inattention 0 - No abnormality -Total 3 Query Text:A score of 0 is normal or asymptomatic. Total possible score is 42 . ED: Notify Physician for NIHSS increase by > / = 3 points. Inpatient: RN or Physician to activate a stroke alert for NIHSS increase of > / = 3 points. Coma Scale [Assess] -Eye Opening Spontaneous -Motor Obeys Commands -Verbal Oriented [Total] -Coma Scale Total 15
[2025-02-12 12:16] VITALS: BMI 27.8
[2025-02-12 12:17] VITALS: BMI 27.8
[2025-02-12 12:40] VITALS: BMI 27.8
[2025-02-12 12:54] VITALS: BP 196/75; PULSE 63; RESP 16; TEMP 36.4; O2SAT 99
--- NOTE | 2025-02-12 16:51 | PN.HOSP_ITS ---
Reason for Visit
--- NOTE | 2025-02-12 16:51 | PCM.PN.HOSP ---
Reason for Visit Chief Complaint: Neurologic abnormalities Subjective Subjective Patient still feels unsteady on his feet, minimal tingling left hand, speech is clear and patient more alert Objective Data Objective Data Vital Signs: Vital Signs Temp Pulse Resp BP Pulse Ox O2 Del Method 97.5 F L 63 16 196/75 H 99 Room Air 02/12/25 12:54 02/12/25 12:54 02/12/25 12:54 02/12/25 12:54 02/12/25 12:54 02/12/25 14:28 Oxygen Delivery Method Room Air Weight: 90.4 kg Body Mass Index (BMI) 27.8 Intake & Output: Intake and Output for Last 24 Hours 02/10/25 02/11/25 02/12/25 23:59 23:59 22:59 Intake Total 720 / 720 Balance 720 / 720 Lab / Micro Data 02/12/25 03:30 02/12/25 03:30 Labs: Laboratory Results - last 24 hr 02/11/25 12:25: Hemoglobin A1c 8.1 H 02/11/25 21:03: POC Glucose 239 H 02/12/25 03:30: WBC 7.8, RBC 3.79 L, Hgb 10.6 L, Hct 32.4 L, MCV 85.5, MCH 28.0, MCHC 32.7, RDW Std Deviation 45.8 H, RDW Coeff of Lisa 14.6, Plt Count 201, MPV 12.4 H, Immature Gran % (Auto) 0.400, Neut % (Auto) 76.4 H, Lymph % (Auto) 14.8 L, [place] % (Auto) 7.2, Eos % (Auto) 0.9, Baso % (Auto) 0.3, Absolute Neuts (auto) 6.0, Absolute Lymphs (auto) 1.15, Nucleated RBC % 0, Sodium 138, Potassium 4.3, Chloride 103, Carbon Dioxide 24.1, Anion Gap 10, BUN 29 H, Creatinine 1.57 H, Estim Creat Clear Calc 41.73 L, Est GFR (MDRD) Non-Af 44 L, BUN/Creatinine Ratio 18.4, Glucose 156 H, Calcium 9.0, Triglycerides 123, Cholesterol 199, LDL Cholesterol, Calc 126, VLDL Cholesterol 25, HDL Cholesterol 51, Cholesterol/HDL Ratio 3.89, Free T4 0.80 02/12/25 06:09: POC Glucose 151 H 02/12/25 11:48: POC Glucose 196 H Radiography Diagnostic Testing: Radiology Impression Brain MRI 02/12/25 10:00 IMPRESSION: Acute/subacute ischemic infarction of the brainstem, specifically involving the RIGHT ana measuring 19 x 11 mm. No mass effect or hemorrhage. Reading Location: [facility] Rhythm Strip Rhythm Strip: Sinus Rhythm Rate: 73 Ectopy: None Physical Exam Narrative General: Alert, oriented, no acute distress HEENT: Atraumatic Eyes: Anicteric, normal conjunctiva, extraocular movements intact, pupils equal Neck: Supple Respiratory: Clear to auscultation bilaterally, normal respiratory effort Cardiovascular: Regular rate and rhythm GI: Soft, nontender, nondistended Extremities: Does have 1+ bilateral lower extremity edema Musculoskeletal: Strength 5 out of 5 in right upper extremity, -5 out of 5 left upper extremity, 5 out of 5 right lower extremity, 5 out of 5 left lower extremity Neuro: Some slight flattening of left nasolabial fold, otherwise cranial nerves II through XII intact, completed [id number] though intermittently with slightly overshoot Skin: Chronic changes on lower extremities Psych: Cooperative Assessment & Plan Assessment/Plan (1) Acute CVA (cerebrovascular accident): PLAN: Plan # Left hand tingling, dysarthria, difficulty walking-found to have acute/subacute ischemic infarct of right ana -Admit to tele -CT head w/ subtle hypodensity in right ana which could be an acute lacunar type infarct but unclear, no hemorrhage -CTA head and neck with no LVO -MRI ordered -NIH q4hr -asa, statin -Echo -PT/OT/Speech eval -Teleneuro consult ordered -Hold BP medications to allow for permissive hypertension for 24 hours unless SBP greater than 220 or DBP greater than 120 or until stroke is ruled out -02/12: MRI noted acute/subacute ischemic infarction of the brainstem specifically involving the right ana. Symptoms similar to yesterday not slightly improved. Discussed with neuro, is advised to continue aspirin and statin and complete CVA workup with TTE which will be completed tomorrow. Discussed findings with patient and family, patient open to placement if needed given he is still unsteady # Hypertensive emergency - Patient presented with blood pressure in the 260s with a headache - Troponin 78 which decreased to 69 and subsequently 48 - Denied any chest pain but improved with improving blood pressure - Managing patient with permissive hypertension but blood pressure has significantly improved down to 145/79, supportive care -EKG in ED 73 NSR, RBBB, LAFB -Echo ordered as above -Will likely ultimately need to start pt on antihypertensives before or on discharge -02/12: BP still fluctuating but is still elevated, will start amlodipine #Type 2 diabetes mellitus -Hemoglobin 8.1, not on anything at home and no known history of diabetes -Glucose checks and sliding scale insulin - Can likely start on metformin on discharge or alternative agent and follow-up with a primary care provider on discharge -02/12: Discussed with patient about diabetic diet, patient seen by dietitian, he is aware he will likely be started on medication for diabetes on discharge #DVT ppx: SCDs Nida Kaur MD Charges/Coding Visit Charges Inpatient E&M: 94131 Subs Hosp L2 NIHSS NIHSS Nursing Documentation NIHSS Nursing Documentation: NIH Stroke Scale Start: 02/11/25 12:43 Freq: Status: Discharge Protocol: Activity Type Activity Date Activity User E-sign Co-sign Detail Recorded Client Recorded Date Recorded By Document 02/11/25 12:43 AC [id number] 02/11/25 12:44 AC 02/11/25 12:43 NIH Stroke Scale [NIHSS] A score of 0 is normal or asymptomatic . Total possible score is 42. Inpatient: RN or Physician to activate a stroke alert for onset of new stroke symptoms or with NIHSS increase >/= 3 points. Following change in neurological status, NIHSS will be performed per physician order or more frequently PRN. -1a. Level of Consciousness 0 - Alert; keenly responsive -1b. LOC Questions 0 - Answers BOTH questions correctly -1c. LOC Commands 0 - Performs BOTH tasks correctly -2. Best Gaze 0 - Normal -3. Visual 0 - No visual loss -4. Facial Palsy 0 - Normal symmetrical movements -5a. Left Arm 0 - No drift; arm holds 90 ( or 45) degrees for full 10 seconds -5b. Right Arm 0 - No drift; arm holds 90 ( or 45) degrees for full 10 seconds -6a. Left Leg 0 - No drift; leg holds 30- degree position for full 5 seconds -6b. Right Leg 0 - No drift; leg holds 30- degree position for full 5 seconds -7. Limb Ataxia 0 - Absent -8. Sensory 0 - Normal; no sensory loss -9. Best Language 0 - No aphasia; normal -10. Dysarthria 1 = Mild-to- moderate dysarthria; -11. Extinction and Inattention 0 - No abnormality -Total 1 Query Text:A score of 0 is normal or asymptomatic. Total possible score is 42 . ED: Notify Physician for NIHSS increase by > / = 3 points. Inpatient: RN or Physician to activate a stroke alert for NIHSS increase of > / = 3 points. NIHSS: Ischemic Stroke/TIA Start: 02/11/25 17:47 Text: For PCU Patients: NIH and Neuro Check every 4 Status: Complete hours, PRN and with change in RN caregiver. Freq: [id number] Protocol: Activity Type Activity Date Activity User E-sign Co-sign Detail Recorded Client Recorded Date Recorded By Document 02/12/25 12:58 KIKI [id number] 02/12/25 13:04 KIKI 02/12/25 12:58 -1a. Level of Consciousness 0 - Alert; keenly responsive -1b. LOC Questions 0 - Answers BOTH questions correctly -1c. LOC Commands 0 - Performs BOTH tasks correctly -2. Best Gaze 0 - Normal -3. Visual 0 - No visual loss -4. Facial Palsy 1 - Minor paralysis ( flattened nasolabial fold , asymmetry on smiling) -5a. Left Arm 0 - No drift; arm holds 90 ( or 45) degrees for full 10 seconds -5b. Right Arm 0 - No drift; arm holds 90 ( or 45) degrees for full 10 seconds -6a. Left Leg 0 - No drift; leg holds 30- degree position for full 5 seconds -6b. Right Leg 0 - No drift; leg holds 30- degree position for full 5 seconds -7. Limb Ataxia 0 - Absent -8. Sensory 0 - Normal; no sensory loss -9. Best Language 0 - No aphasia; normal -10. Dysarthria 1 = Mild-to- moderate dysarthria; -11. Extinction and Inattention 0 - No abnormality -Total 2 Query Text:A score of 0 is normal or asymptomatic. Total possible score is 42 . ED: Notify Physician for NIHSS increase by > / = 3 points. Inpatient: RN or Physician to activate a stroke alert for NIHSS increase of > / = 3 points. Coma Scale [Assess] -Eye Opening Spontaneous -Motor Obeys Commands -Verbal Oriented [Total] -Coma Scale Total 15
[2025-02-12 21:21] VITALS: BP 158/68; PULSE 65; RESP 18; TEMP 36.5; O2SAT 98
[2025-02-12 23:58] VITALS: BMI 27.8
[2025-02-13 03:15] VITALS: BP 163/65; PULSE 60; RESP 16; TEMP 36.4; O2SAT 95
[2025-02-13 04:53] LABS: Hematocrit 34.6 % (40-54); Hemoglobin 11.0 g/dL (13.0-16.5); Immature Granulocytes Count 0.030 X10^3/uL (0.0-0.0); Mean Corp Hgb Conc 31.8 g/dL (32-36); Mean Corpuscular Volume 85.4 fL (80-94); Mean Platelet Vol. 12.3 fl (6.2-12.0); NRBC Flagged by Analyzer 0 % (0-5); Platelet Count 210 K/mm3 (150-450); RBC Distribution Width CV 14.4 % (11.6-14.6); RBC Distribution Width SD 45.0 fl (35.1-43.9); Red Blood Count 4.05 M/mm3 (4.6-6.2); White Blood Count 6.1 K/mm3 (4.4-11.0)
[2025-02-13 05:22] LABS: Anion Gap 10 (5-15); BUN 29 mg/dL (4-19); BUN/Creat Ratio 19.9 RATIO (10-20); Calcium,Total 9.0 mg/dL (7.6-11.0); Carbon Dioxide 23.8 mmol/L (21.0-32.0); Chloride 103 mmol/L (98-108); Estimated Creatinine Clearance 45.19 ml/min (50-250); Glucose 164 mg/dL (70-99); Potassium 4.2 mmol/L (3.3-5.1)
[2025-02-13 08:16] VITALS: BP 193/72; PULSE 59; RESP 17; TEMP 36.8; O2SAT 95
[2025-02-13 11:08] VITALS: BMI 27.8
--- NOTE | 2025-02-13 11:18 | CON.PCM.NE_ITS ---
Assessment and Plan: Stroke
--- NOTE | 2025-02-13 11:18 | STROKE.CONS ---
Assessment and Plan: Stroke Assessment/Plan MERCED ERICKSON, is a 84 M with PMH of ED and chronic neuropathy (fingers/ankles) not on any prescription medications, who presents with left hand tingling, dysarthria, and unsteady gait. LKW 02/10 in the evening. He noted to have a R retro-orbital SAL when symptoms started but when presented to hospital denied hedadhe. He was noted to have SBP in 260s on arrival. He has been admitted for stroke workup. CTH with subtle hypodensity in the R ana. CTA without proximal LVO or high grade focal critical stenosis. MRI with acute infarct in R ana. TTE woth mild LVH, EF 65, and moderate LA enlargement. He has been started on ASA 81 mg daily (he states he does take ASA but is not consistent). LDL 126. A1C 8.1. He has new diagnosis of DM, HTN, HLD that he previously denies. Neurological examination shows NIHSS for L facial droop (2), dysarthria (1), LUE drift (1), LUE ataxia (1), LLE ataxia (1), sensory (1). He reports improvement in speech and LUE. Neuroimaging shows acute R pontine infarct. - Continue ASA 81 mg daily - Continue Atorvastatin 80 mg qhs - Recommend net applications developer at discharge - Recommend PT/OT/WEBSPHERE MESSAGE BROKER DEVELOPER - Recommend vascular risk factor modification including normotension (defer medication management to primary team), normoglycemia (diabetes education, counseling, defer medication management to endo/primary team), lifestyle modifications. Counseling provided. - Follow up with neurology in 4-6 weeks (patient prefers to follow up locally) for stroke and peripheral neuropathy - No further stroke workup indicated at this time, we will sign off HPI Consult Data Date of Consult: 02/13/25 HPI Narrative HPI Narrative: MERCED ERICKSON, is a 84 M with PMH of ED and chronic neuropathy (fingers/ankles) not on any prescription medications, who presents with left hand tingling, dysarthria, and unsteady gait. LKW 02/10 in the evening. He noted to have a R retro-orbital SAL when symptoms started but when presented to hospital denied hedadhe. He was noted to have SBP in 260s on arrival. He has been admitted for stroke workup. CTH with subtle hypodensity in the R ana. CTA without proximal LVO or high grade focal critical stenosis. MRI with acute infarct in R ana. TTE woth mild LVH, EF 65, and moderate LA enlargement. He has been started on ASA 81 mg daily (he states he does take ASA but is not consistent). LDL 126. A1C 8.1. He has new diagnosis of DM, HTN, HLD that he previously denies. PFSH Medical History no medical history Home Medications ?Medication ?Instructions ?Recorded ?Last Taken ?Type No Known/Unobtainable [No Known 09/15/15 Unknown History Home Medications] Allergy/AdvReac Type Severity Reaction Status Date / Time No Known Allergies Allergy Verified 02/11/25 12:41 Family History no significant family his Surgical History no surgical history Social History Smoking Status: Never smoker Vital Signs Vital Signs Vital Signs: 02/12/25 12:54 02/12/25 14:28 02/12/25 19:45 Temperature 97.5 F L Temperature Source Axillary Pulse Rate 63 Pulse Strength Respiratory Rate 16 Respiratory Effort Normal Non-Labored Normal Non-Labored Respiratory Depth Normal Normal Respiratory Pattern Normal Normal Blood Pressure 196/75 H Blood Pressure Mean 115 Blood Pressure Source Monitor Blood Pressure Position Semi-Fowlers Blood Pressure Location Left Arm Pulse Ox 99 Oxygen Delivery Method Room Air Room Air Room Air 02/12/25 21:21 02/12/25 22:00 02/13/25 03:15 Temperature 97.7 F L 97.5 F L Temperature Source Oral Oral Pulse Rate 65 60 Pulse Strength Normal (2+) Respiratory Rate 18 16 Respiratory Effort Respiratory Depth Respiratory Pattern Blood Pressure 158/68 H 163/65 H Blood Pressure Mean 98 97 Blood Pressure Source Monitor Monitor Blood Pressure Position Semi-Fowlers Semi-Fowlers Blood Pressure Location Left Arm Left Arm Pulse Ox 98 95 Oxygen Delivery Method Room Air Room Air 02/13/25 03:25 02/13/25 07:45 02/13/25 08:16 Temperature 98.2 F Temperature Source Temporal Pulse Rate 59 L Pulse Strength Respiratory Rate 17 Respiratory Effort Normal Non-Labored Respiratory Depth Respiratory Pattern Blood Pressure 193/72 H Blood Pressure Mean 112 Blood Pressure Source Monitor Blood Pressure Position Semi-Fowlers Blood Pressure Location Left Arm Pulse Ox 95 Oxygen Delivery Method Room Air Room Air Room Air 02/13/25 08:31 02/13/25 08:38 Temperature Temperature Source Pulse Rate Pulse Strength Normal (2+) Respiratory Rate Respiratory Effort Normal Non-Labored Respiratory Depth Normal Respiratory Pattern Normal Blood Pressure Blood Pressure Mean Blood Pressure Source Blood Pressure Position Blood Pressure Location Pulse Ox Oxygen Delivery Method Weight Weight: 90.4 kg Body Mass Index (BMI) 27.8 EEG Results Procedure Details EEG Procedure Details: MERCED ERICKSON is a 84 year old M with a past medical history of , who presents for evaluation of Electroencephalogram on DATE at TIME Lab / Micro Data 02/13/25 03:50 02/13/25 03:50 Labs: Laboratory Results - last 24 hr 02/12/25 11:48: POC Glucose 196 H 02/12/25 16:33: POC Glucose 158 H 02/12/25 21:24: POC Glucose 186 H 02/13/25 03:50: WBC 6.1, RBC 4.05 L, Hgb 11.0 L, Hct 34.6 L, MCV 85.4, MCH 27.2, MCHC 31.8 L, RDW Std Deviation 45.0 H, RDW Coeff of Lisa 14.4, Plt Count 210, MPV 12.3 H, Immature Gran % (Auto) 0.500, Neut % (Auto) 69.0, Lymph % (Auto) 17.8 L, [place] % (Auto) 9.9, Eos % (Auto) 2.1, Baso % (Auto) 0.7, Absolute Neuts (auto) 4.2, Absolute Lymphs (auto) 1.08, Nucleated RBC % 0, Sodium 137, Potassium 4.2, Chloride 103, Carbon Dioxide 23.8, Anion Gap 10, BUN 29 H, Creatinine 1.45 H, Estim Creat Clear Calc 45.19 L, Est GFR (MDRD) Non-Af 48 L, BUN/Creatinine Ratio 19.9, Glucose 164 H, Calcium 9.0 02/13/25 06:21: POC Glucose 149 H Rhythm Strip Rhythm Strip: Sinus Rhythm Rate: 73 Ectopy: None Imaging Radiology Impression Brain MRI 02/12/25 10:00 IMPRESSION: Acute/subacute ischemic infarction of the brainstem, specifically involving the RIGHT ana measuring 19 x 11 mm. No mass effect or hemorrhage. Reading Location: [facility] Active Medications Active Medications Active Medications: Current Medications Generic Name Dose Route Start Last Admin Trade Name Freq PRN Reason Stop Dose Admin Acetaminophen 650 mg 02/11/25 17:47 02/13/25 03:22 Acetaminophen 325 Mg Tablet PO 650 mg Q6H PRN PRN Administration Pain 1-10 Or Fever >100.7 Albuterol Sulfate 2.5 mg 02/11/25 17:47 Albuterol 2.5 Mg/3 Ml Vial.Neb. INHALATION Q2H PRN PRN SOB &/OR WHEEZING Amlodipine Besylate 10 mg 02/14/25 10:00 Amlodipine 10 Mg Tablet PO DAILY ANITA Protocol Aspirin 81 mg 02/12/25 08:00 02/13/25 08:21 Aspirin 81 Mg Tab.Chew PO 81 mg BREAKFAST ANITA Administration Atorvastatin Calcium 40 mg 02/11/25 22:00 02/12/25 21:25 Atorvastatin Calcium 40 Mg Tablet PO 40 mg QHS ANITA Administration Glucagon 1 mg 02/11/25 20:02 Glucagon 1 Mg/Ml Syringe IM X1 PRN Hypoglycemia Protocol Hydralazine HCl 5 mg 02/13/25 09:53 Hydralazine 20 Mg/Ml Vial IV Q4H PRN PRN SBP >/=170 Protocol Sodium Chloride 250 mls @ 15 mls/hr 02/11/25 18:43 IV .[id number] PRN Saline Flush Sodium Chloride 250 mls @ 15 mls/hr 02/11/25 18:43 IV .[id number] PRN Additional IVPB Infusion Dextrose 250 mls @ 0 mls/hr 02/11/25 20:02 Dextrose 10%-Water IV .Q0M PRN HYPOGLYCEMIA Protocol As Directed Insulin Human Lispro 0 unit 02/11/25 22:00 02/13/25 06:29 Insulin Lispro 100 Unit/Ml Insuln.Pen SC Not Given ACHS ANITA Protocol Lorazepam 0.5 mg 02/11/25 17:47 Lorazepam 0.5 Mg Tablet PO X1 PRN Anxiety with MRI Melatonin 10 mg 02/11/25 17:47 Melatonin 10 Mg Tablet PO QHS PRN PRN INSOMNIA Ondansetron HCl 4 mg 02/11/25 17:47 Ondansetron 4 Mg/2 Ml Vial IV Q8H PRN PRN NAUSEA/VOMITING Senna/Docusate Sodium 2 tablet 02/11/25 17:47 Senna/Docusate Sodium 1 Tablet PO BID PRN PRN Constipation Sodium Chloride 10 - 40 ml 02/11/25 18:43 02/11/25 21:11 0.9% Saline Lock 10 Ml Syringe IV 10 ml UD PRN Administration SALINE FLUSH NIHSS NIHSS Nursing Documentation NIHSS Nursing Documentation: NIH Stroke Scale Start: 02/11/25 12:43 Freq: Status: Discharge Protocol: Activity Type Activity Date Activity User E-sign Co-sign Detail Recorded Client Recorded Date Recorded By Document 02/11/25 12:43 AC [id number] 02/11/25 12:44 AC 02/11/25 12:43 NIH Stroke Scale [NIHSS] A score of 0 is normal or asymptomatic . Total possible score is 42. Inpatient: RN or Physician to activate a stroke alert for onset of new stroke symptoms or with NIHSS increase >/= 3 points. Following change in neurological status, NIHSS will be performed per physician order or more frequently PRN. -1a. Level of Consciousness 0 - Alert; keenly responsive -1b. LOC Questions 0 - Answers BOTH questions correctly -1c. LOC Commands 0 - Performs BOTH tasks correctly -2. Best Gaze 0 - Normal -3. Visual 0 - No visual loss -4. Facial Palsy 0 - Normal symmetrical movements -5a. Left Arm 0 - No drift; arm holds 90 ( or 45) degrees for full 10 seconds -5b. Right Arm 0 - No drift; arm holds 90 ( or 45) degrees for full 10 seconds -6a. Left Leg 0 - No drift; leg holds 30- degree position for full 5 seconds -6b. Right Leg 0 - No drift; leg holds 30- degree position for full 5 seconds -7. Limb Ataxia 0 - Absent -8. Sensory 0 - Normal; no sensory loss -9. Best Language 0 - No aphasia; normal -10. Dysarthria 1 = Mild-to- moderate dysarthria; -11. Extinction and Inattention 0 - No abnormality -Total 1 Query Text:A score of 0 is normal or asymptomatic. Total possible score is 42 . ED: Notify Physician for NIHSS increase by > / = 3 points. Inpatient: RN or Physician to activate a stroke alert for NIHSS increase of > / = 3 points. NIHSS: Ischemic Stroke/TIA Start: 02/11/25 17:47 Text: For PCU Patients: NIH and Neuro Check every 4 Status: Complete hours, PRN and with change in RN caregiver. Freq: [id number] Protocol: Activity Type Activity Date Activity User E-sign Co-sign Detail Recorded Client Recorded Date Recorded By Document 02/12/25 12:58 KIKI [id number] 02/12/25 13:04 KIKI 02/12/25 12:58 -1a. Level of Consciousness 0 - Alert; keenly responsive -1b. LOC Questions 0 - Answers BOTH questions correctly -1c. LOC Commands 0 - Performs BOTH tasks correctly -2. Best Gaze 0 - Normal -3. Visual 0 - No visual loss -4. Facial Palsy 1 - Minor paralysis ( flattened nasolabial fold , asymmetry on smiling) -5a. Left Arm 0 - No drift; arm holds 90 ( or 45) degrees for full 10 seconds -5b. Right Arm 0 - No drift; arm holds 90 ( or 45) degrees for full 10 seconds -6a. Left Leg 0 - No drift; leg holds 30- degree position for full 5 seconds -6b. Right Leg 0 - No drift; leg holds 30- degree position for full 5 seconds -7. Limb Ataxia 0 - Absent -8. Sensory 0 - Normal; no sensory loss -9. Best Language 0 - No aphasia; normal -10. Dysarthria 1 = Mild-to- moderate dysarthria; -11. Extinction and Inattention 0 - No abnormality -Total 2 Query Text:A score of 0 is normal or asymptomatic. Total possible score is 42 . ED: Notify Physician for NIHSS increase by > / = 3 points. Inpatient: RN or Physician to activate a stroke alert for NIHSS increase of > / = 3 points. Coma Scale [Assess] -Eye Opening Spontaneous -Motor Obeys Commands -Verbal Oriented [Total] -Coma Scale Total 15 NIHSS 1a. Level of Consciousness: 0 - Alert; keenly responsive 1b. LOC Questions: 0 - Answers BOTH questions correctly 1c. LOC Commands: 0 - Performs BOTH tasks correctly 2. Best Gaze: 0 - Normal 3. Visual: 0 - No visual loss 4. Facial Palsy: 2 - Partial paralysis (total or near-total paralysis of lower face) 5a. Left Arm: 1 - Drift; arm drifts downward but doesn?t hit the bed 5b. Right Arm: 0 - No drift; arm holds 90 (or 45) degrees for full 10 seconds 6a. Left Le - No drift; leg holds 30-degree position for full 5 seconds 6b. Right Le - No drift; leg holds 30-degree position for full 5 seconds 7. Limb Ataxia: 2 - Present in 2 limbs 8. Sensory: 1 - [id number] sensory loss; 9. Best Language: 0 - No aphasia; normal 10. Dysarthria: 1 = [id number] dysarthria; 11. Extinction and Inattention: 0 - No abnormality Total: 7
--- NOTE | 2025-02-13 11:24 | CASEMGMT ---
Social Work Pt completed POA for HC, listed adopted granddaughter Kallie as POA, cousin Bobby as the alternate. LW deferred at this time. Pt given document w/the number to the SW dept should he want to return to complete it at a later time. gave pt the original and copies of the POA document, and a copy was placed on the chart. LUDIVINA Emmanuel
--- NOTE | 2025-02-13 11:26 | CASEMGMT ---
Social Work PHQ-9 completed w/pt, pt scored a 2, attributing symptoms to his recent stroke. SW did explain to pt that mood changes can occur after a stroke and to be aware of it, explained if he is struggling w/his mood to speak to his physician. Pt states understanding. LUDIVINA Emmanuel
[2025-02-13 12:00] VITALS: BMI 27.8
--- NOTE | 2025-02-13 12:13 | CASEMGMT ---
RN JIM Assessment Face to Face with patient for initial transition planning/care coordination assessment. RN CM introduced self and role at [facility], pt voices understanding. Pt is A&Ox4 and is resting comfortably in bed and is calm. Care providers, pharmacy, and demographics verified. Admitting dx: IVET PALENCIA Strata: 2 PCP:Sotero Sarabia Specialists: Denies Preferred Pharmacy: [facility] Insurance: [employer] [facility] Prescription Benefit: Yes LNOK: Kallie (Pt states that she is his adopted GD), Bobby (Cousin) Living Arrangements: Pt lives alone in a walk out basement apartment with a flat entrance ADLs/IADLs: Pt states that he is indep at baseline but has help at home through his GD and GD's SO. Pt states that they stayed with the pt last winter Pt states that they do not drive and that he has to pick them up. Pt is currently requiring assistance. Pt's MRI (+). See PT noted and MRI results. Pt states that he is interested in attending a rehab unit to help him get stronger prior to returning home. Pt states that he would prefer to go to [facility] if there is availability. Pt states that he would like to review a list of other acute rehab units if [facility] is unable to accept. 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 Pt states that he does not have any other form of transportation at this time. CM to follow. DME: [facility]. Pt states that he takes his BP at [facility]. Noted the pt has a hx of type II DM (A1C of 8.1). Pt states that he does not have the equipment to check his BS levels at home and would be open to an Rx. Pt also states that he would like a FWW for home use. Pt is aware that the SNF/RU with set this DME up for the pt. Pt aware that if the pt were to DC home instead that CM can assist with DME set up. If so, a verbal list of local in-network DME companies were provided to the pt at this time. Pt prefers [facility] HHC/SNF: Denies hx of Pt?s goal: Return to PLOF Plan: TBD. Anticipate Acute Rehab. Pt informed that this requires 3 hours of rehab per day. Pt states understanding. CM to make referral to [facility] Acute Rehab once appropriate. Pt denies any further questions or concerns at this time. If pt were to DC home, follow for HH, OP Tx, BGM Rx, FWW, and/ or transportation needs. Report given to PORTABLE IRRIGATION OPERATOR CM. Jovanni MEADOWS RN CM
[2025-02-13] MEDS: Senna/Docusate Sodium 1 Tablet 2 TABLET PO (12:44)
[2025-02-13 14:11] VITALS: BP 185/70; PULSE 70; RESP 18; TEMP 36.3; O2SAT 95
[2025-02-13 15:08] VITALS: PULSE 70
--- NOTE | 2025-02-13 17:41 | PN.HOSP_ITS ---
Reason for Visit
--- NOTE | 2025-02-13 17:41 | PCM.PN.HOSP ---
Reason for Visit Chief Complaint: Neurologic abnormalities Subjective Subjective Continuing to improve, still unsteady on his feet but feeling starting to improve in his left hand Objective Data Objective Data Vital Signs: Vital Signs Temp Pulse Resp BP Pulse Ox O2 Del Method 97.4 F L 70 18 185/70 H 95 Room Air 02/13/25 14:11 02/13/25 15:08 02/13/25 14:11 02/13/25 14:11 02/13/25 14:11 02/13/25 14:11 Oxygen Delivery Method Room Air Weight: 90.4 kg Body Mass Index (BMI) 27.8 Intake & Output: Intake and Output for Last 24 Hours 02/11/25 02/12/25 02/13/25 23:59 22:59 23:59 Intake Total 1200 / 1320 495 / 495 Balance 1200 / 1320 495 / 495 Lab / Micro Data 02/13/25 03:50 02/13/25 03:50 Labs: Laboratory Results - last 24 hr 02/12/25 21:24: POC Glucose 186 H 02/13/25 03:50: WBC 6.1, RBC 4.05 L, Hgb 11.0 L, Hct 34.6 L, MCV 85.4, MCH 27.2, MCHC 31.8 L, RDW Std Deviation 45.0 H, RDW Coeff of Lisa 14.4, Plt Count 210, MPV 12.3 H, Immature Gran % (Auto) 0.500, Neut % (Auto) 69.0, Lymph % (Auto) 17.8 L, Major % (Auto) 9.9, Eos % (Auto) 2.1, Baso % (Auto) 0.7, Absolute Neuts (auto) 4.2, Absolute Lymphs (auto) 1.08, Nucleated RBC % 0, Sodium 137, Potassium 4.2, Chloride 103, Carbon Dioxide 23.8, Anion Gap 10, BUN 29 H, Creatinine 1.45 H, Estim Creat Clear Calc 45.19 L, Est GFR (MDRD) Non-Af 48 L, BUN/Creatinine Ratio 19.9, Glucose 164 H, Calcium 9.0 02/13/25 06:21: POC Glucose 149 H 02/13/25 11:25: POC Glucose 192 H 02/13/25 16:13: POC Glucose 203 H Radiography Diagnostic Testing: Radiology Impression Echocardiogram 02/11/25 17:08 Interpretation Summary Mild concentric left ventricular hypertrophy. The left ventricular ejection fraction is 65 %. Stage 1 diastolic dysfunction. The left atrium is moderately enlarged. Mild (1+) mitral valve insufficiency. Right ventricular systolic pressure estimated to be 41 mmHg. Ordering Physician: Nida Kaur Referring Physician: Sotero Sarabia Performed By: Naveed Cm RDCS Rhythm Strip Rhythm Strip: Sinus Rhythm Rate: 73 Ectopy: None Physical Exam Narrative General: Alert, oriented, no acute distress HEENT: Atraumatic Eyes: Anicteric, normal conjunctiva, extraocular movements intact, pupils equal Neck: Supple Respiratory: Clear to auscultation bilaterally, normal respiratory effort Cardiovascular: Regular rate and rhythm GI: Soft, nontender, nondistended Musculoskeletal: Continues to have equal strength in lower extremities, still slightly weak in left upper extremity compared to right Neuro: Some slight flattening of left nasolabial fold, otherwise cranial nerves II through XII intact Skin: Chronic changes on lower extremities Psych: Cooperative Assessment & Plan Assessment/Plan (1) Acute CVA (cerebrovascular accident): PLAN: Plan # Left hand tingling, dysarthria, difficulty walking-found to have acute/subacute ischemic infarct of right ana -Admit to tele -CT head w/ subtle hypodensity in right ana which could be an acute lacunar type infarct but unclear, no hemorrhage -CTA head and neck with no LVO -MRI ordered -NIH q4hr -asa, statin -Echo -PT/OT/Speech eval -Teleneuro consult ordered -Hold BP medications to allow for permissive hypertension for 24 hours unless SBP greater than 220 or DBP greater than 120 or until stroke is ruled out -02/12: MRI noted acute/subacute ischemic infarction of the brainstem specifically involving the right ana. Symptoms similar to yesterday not slightly improved. Discussed with neuro, is advised to continue aspirin and statin and complete CVA workup with TTE which will be completed tomorrow. Discussed findings with patient and family, patient open to placement if needed given he is still unsteady -02/13: TTE with an EF of 65% and stage I diastolic dysfunction, RVSP of 41. Stroke workup complete, continue aspirin and statin, will have plan for Holter monitor on discharge. Additionally plan is going to be for rehab prior to DC home. Will need to follow-up with neurology in 4 to 6 weeks. Discussed with neurology # Hypertensive emergency - Patient presented with blood pressure in the 260s with a headache - Troponin 78 which decreased to 69 and subsequently 48 - Denied any chest pain but improved with improving blood pressure - Managing patient with permissive hypertension but blood pressure has significantly improved down to 145/79, supportive care -EKG in ED 73 NSR, RBBB, LAFB -Echo ordered as above -Will likely ultimately need to start pt on antihypertensives before or on discharge -02/12: BP still fluctuating but is still elevated, will start amlodipine -02/13: Amlodipine increased and hydrochlorothiazide started, suspect patient significantly hypertensive routinely and will need to slowly decrease blood pressure over time. Patient asymptomatic and is better than on presentation when systolic was 260. Continue to adjust #Type 2 diabetes mellitus -Hemoglobin 8.1, not on anything at home and no known history of diabetes -Glucose checks and sliding scale insulin - Can likely start on metformin on discharge or alternative agent and follow-up with a primary care provider on discharge -02/12: Discussed with patient about diabetic diet, patient seen by dietitian, he is aware he will likely be started on medication for diabetes on discharge -02/13: Remains on sliding scale insulin #DVT ppx: SCDs Nida Kaur MD Time spent in the patient's overall evaluation,decision-making process, review of diagnostic data, adjustment of management, discussion with other providers, nursing nursing and ancillary staff involved in patient's care documentation, 36 Minutes Charges/Coding Visit Charges Inpatient E&M: 63730 Subs Hosp L2 NIHSS NIHSS Nursing Documentation NIHSS Nursing Documentation: NIH Stroke Scale Start: 02/11/25 12:43 Freq: Status: Discharge Protocol: Activity Type Activity Date Activity User E-sign Co-sign Detail Recorded Client Recorded Date Recorded By Document 02/11/25 12:43 AC [id number] 02/11/25 12:44 AC 02/11/25 12:43 NIH Stroke Scale [NIHSS] A score of 0 is normal or asymptomatic . Total possible score is 42. Inpatient: RN or Physician to activate a stroke alert for onset of new stroke symptoms or with NIHSS increase >/= 3 points. Following change in neurological status, NIHSS will be performed per physician order or more frequently PRN. -1a. Level of Consciousness 0 - Alert; keenly responsive -1b. LOC Questions 0 - Answers BOTH questions correctly -1c. LOC Commands 0 - Performs BOTH tasks correctly -2. Best Gaze 0 - Normal -3. Visual 0 - No visual loss -4. Facial Palsy 0 - Normal symmetrical movements -5a. Left Arm 0 - No drift; arm holds 90 ( or 45) degrees for full 10 seconds -5b. Right Arm 0 - No drift; arm holds 90 ( or 45) degrees for full 10 seconds -6a. Left Leg 0 - No drift; leg holds 30- degree position for full 5 seconds -6b. Right Leg 0 - No drift; leg holds 30- degree position for full 5 seconds -7. Limb Ataxia 0 - Absent -8. Sensory 0 - Normal; no sensory loss -9. Best Language 0 - No aphasia; normal -10. Dysarthria 1 = Mild-to- moderate dysarthria; -11. Extinction and Inattention 0 - No abnormality -Total 1 Query Text:A score of 0 is normal or asymptomatic. Total possible score is 42 . ED: Notify Physician for NIHSS increase by > / = 3 points. Inpatient: RN or Physician to activate a stroke alert for NIHSS increase of > / = 3 points. NIHSS: Ischemic Stroke/TIA Start: 02/11/25 17:47 Text: For PCU Patients: NIH and Neuro Check every 4 Status: Complete hours, PRN and with change in RN caregiver. Freq: [id number] Protocol: Activity Type Activity Date Activity User E-sign Co-sign Detail Recorded Client Recorded Date Recorded By Document 02/12/25 12:58 KIKI [id number] 02/12/25 13:04 KIKI 02/12/25 12:58 -1a. Level of Consciousness 0 - Alert; keenly responsive -1b. LOC Questions 0 - Answers BOTH questions correctly -1c. LOC Commands 0 - Performs BOTH tasks correctly -2. Best Gaze 0 - Normal -3. Visual 0 - No visual loss -4. Facial Palsy 1 - Minor paralysis ( flattened nasolabial fold , asymmetry on smiling) -5a. Left Arm 0 - No drift; arm holds 90 ( or 45) degrees for full 10 seconds -5b. Right Arm 0 - No drift; arm holds 90 ( or 45) degrees for full 10 seconds -6a. Left Leg 0 - No drift; leg holds 30- degree position for full 5 seconds -6b. Right Leg 0 - No drift; leg holds 30- degree position for full 5 seconds -7. Limb Ataxia 0 - Absent -8. Sensory 0 - Normal; no sensory loss -9. Best Language 0 - No aphasia; normal -10. Dysarthria 1 = Mild-to- moderate dysarthria; -11. Extinction and Inattention 0 - No abnormality -Total 2 Query Text:A score of 0 is normal or asymptomatic. Total possible score is 42 . ED: Notify Physician for NIHSS increase by > / = 3 points. Inpatient: RN or Physician to activate a stroke alert for NIHSS increase of > / = 3 points. Coma Scale [Assess] -Eye Opening Spontaneous -Motor Obeys Commands -Verbal Oriented [Total] -Coma Scale Total 15
[2025-02-13 19:00] VITALS: PULSE 63
[2025-02-13 21:56] VITALS: BP 149/70; PULSE 60; RESP 17; TEMP 36.7; O2SAT 95
[2025-02-13] MEDS: 0.9% Saline Lock 10 ML Syringe IV (21:58)
[2025-02-13] MEDS: MELATONIN 10 MG TABLET PO (21:58)
[2025-02-13 23:01] VITALS: BMI 27.8
[2025-02-14 03:00] VITALS: PULSE 44
[2025-02-14 03:53] VITALS: BP 146/67; PULSE 51; RESP 17; TEMP 36.4; O2SAT 95
[2025-02-14 06:34] VITALS: O2SAT 94
[2025-02-14 07:31] LABS: Hematocrit 38.2 % (40-54); Hemoglobin 12.2 g/dL (13.0-16.5); Immature Granulocytes Count 0.040 X10^3/uL (0.0-0.0); Mean Corp Hgb Conc 31.9 g/dL (32-36); Mean Corpuscular Volume 86.2 fL (80-94); Mean Platelet Vol. 12.3 fl (6.2-12.0); NRBC Flagged by Analyzer 0 % (0-5); Platelet Count 248 K/mm3 (150-450); RBC Distribution Width CV 14.4 % (11.6-14.6); RBC Distribution Width SD 45.9 fl (35.1-43.9); Red Blood Count 4.43 M/mm3 (4.6-6.2); White Blood Count 7.8 K/mm3 (4.4-11.0)
[2025-02-14 08:10] LABS: Anion Gap 11 (5-15); BUN 37 mg/dL (4-19); BUN/Creat Ratio 23.5 RATIO (10-20); Calcium,Total 9.3 mg/dL (7.6-11.0); Carbon Dioxide 25.1 mmol/L (21.0-32.0); Chloride 101 mmol/L (98-108); Estimated Creatinine Clearance 41.73 ml/min (50-250); Glucose 145 mg/dL (70-99); Potassium 4.3 mmol/L (3.3-5.1)
[2025-02-14 10:00] VITALS: BP 170/92; PULSE 61; RESP 16; TEMP 36.6; O2SAT 95
--- NOTE | 2025-02-14 11:40 | CASEMGMT ---
MELVINA FERNANDEZ made referral to [facility] and patient has been accepted. [facility] to submit for precert, awaiting approval. MELVINA FERNANDEZ updated patient, patient voiced appreciation and had no further questions or concerns. CM will continue to follow this patient and plan for a safe discharge.
[2025-02-14 12:00] VITALS: BMI 27.8
[2025-02-14 16:00] VITALS: BP 155/86; PULSE 68; RESP 16; TEMP 36.4; O2SAT 95
--- NOTE | 2025-02-14 16:59 | PN.HOSP_ITS ---
Reason for Visit
--- NOTE | 2025-02-14 16:59 | PCM.PN.HOSP ---
Reason for Visit Chief Complaint: Neurologic abnormalities Subjective Subjective Patient sitting up in chair with family members present, reports sometimes his lower extremities irritate him due to the thickened dry skin, otherwise no acute complaints Objective Data Objective Data Vital Signs: Vital Signs Temp Pulse Resp BP Pulse Ox O2 Del Method 97.9 F 61 16 170/92 H 95 Room Air 02/14/25 10:00 02/14/25 10:00 02/14/25 10:00 02/14/25 10:00 02/14/25 10:00 02/14/25 10:00 Oxygen Delivery Method Room Air Weight: 90.4 kg Body Mass Index (BMI) 27.8 Intake & Output: Intake and Output for Last 24 Hours 02/12/25 02/13/25 02/14/25 22:59 23:59 23:59 Intake Total 1200 / 1320 495 / 495 Balance 1200 / 1320 495 / 495 Lab / Micro Data 02/14/25 06:57 02/14/25 06:57 Labs: Laboratory Results - last 24 hr 02/13/25 21:47: POC Glucose 140 H 02/14/25 06:55: POC Glucose 129 H 02/14/25 06:57: WBC 7.8, RBC 4.43 L, Hgb 12.2 L, Hct 38.2 L, MCV 86.2, MCH 27.5, MCHC 31.9 L, RDW Std Deviation 45.9 H, RDW Coeff of Lisa 14.4, Plt Count 248, MPV 12.3 H, Immature Gran % (Auto) 0.500, Neut % (Auto) 73.6 H, Lymph % (Auto) 17.2 L, [place] % (Auto) 6.7, Eos % (Auto) 1.5, Baso % (Auto) 0.5, Absolute Neuts (auto) 5.7, Absolute Lymphs (auto) 1.34, Nucleated RBC % 0, Sodium 136, Potassium 4.3, Chloride 101, Carbon Dioxide 25.1, Anion Gap 11, BUN 37 H, Creatinine 1.57 H, Estim Creat Clear Calc 41.73 L, Est GFR (MDRD) Non-Af 44 L, BUN/Creatinine Ratio 23.5 H, Glucose 145 H, Calcium 9.3 02/14/25 12:37: POC Glucose 162 H Rhythm Strip Rhythm Strip: Sinus Rhythm Rate: 73 Ectopy: None Physical Exam Narrative General: Alert, oriented, no acute distress HEENT: Atraumatic, still appears to have some left lower facial droop Eyes: Anicteric, normal conjunctiva, extraocular movements intact, pupils equal Neck: Supple Respiratory: Clear to auscultation bilaterally, normal respiratory effort Cardiovascular: Regular rate and rhythm GI: Soft, nontender, nondistended Musculoskeletal: Moving all extremities Neuro: Some slight flattening of left nasolabial fold, otherwise cranial nerves II through XII intact Skin: Chronic changes on lower extremities Psych: Cooperative Assessment & Plan Assessment/Plan (1) Acute CVA (cerebrovascular accident): PLAN: Plan # Left hand tingling, dysarthria, difficulty walking-found to have acute/subacute ischemic infarct of right ana -Admit to tele -CT head w/ subtle hypodensity in right ana which could be an acute lacunar type infarct but unclear, no hemorrhage -CTA head and neck with no LVO -MRI ordered -NIH q4hr -asa, statin -Echo -PT/OT/Speech eval -Teleneuro consult ordered -Hold BP medications to allow for permissive hypertension for 24 hours unless SBP greater than 220 or DBP greater than 120 or until stroke is ruled out -02/12: MRI noted acute/subacute ischemic infarction of the brainstem specifically involving the right ana. Symptoms similar to yesterday not slightly improved. Discussed with neuro, is advised to continue aspirin and statin and complete CVA workup with TTE which will be completed tomorrow. Discussed findings with patient and family, patient open to placement if needed given he is still unsteady -02/13: TTE with an EF of 65% and stage I diastolic dysfunction, RVSP of 41. Stroke workup complete, continue aspirin and statin, will have plan for Holter monitor on discharge. Additionally plan is going to be for rehab prior to DC home. Will need to follow-up with neurology in 4 to 6 weeks. Discussed with neurology -02/14: Patient medically ready for discharge, awaiting insurance authorization for patient to go to med rehab # Hypertensive emergency?resolved - Patient presented with blood pressure in the 260s with a headache - Troponin 78 which decreased to 69 and subsequently 48 - Denied any chest pain but improved with improving blood pressure - Managing patient with permissive hypertension but blood pressure has significantly improved down to 145/79, supportive care -EKG in ED 73 NSR, RBBB, LAFB -Echo ordered as above -Will likely ultimately need to start pt on antihypertensives before or on discharge -02/12: BP still fluctuating but is still elevated, will start amlodipine -02/13: Amlodipine increased and hydrochlorothiazide started, suspect patient significantly hypertensive routinely and will need to slowly decrease blood pressure over time. Patient asymptomatic and is better than on presentation when systolic was 260. Continue to adjust -02/14: Slowly improving, given blood pressure with 260s systolic when he came in patient is improving, will need continued titration on discharge #Type 2 diabetes mellitus -Hemoglobin 8.1, not on anything at home and no known history of diabetes -Glucose checks and sliding scale insulin - Can likely start on metformin on discharge or alternative agent and follow-up with a primary care provider on discharge -02/12: Discussed with patient about diabetic diet, patient seen by dietitian, he is aware he will likely be started on medication for diabetes on discharge -02/13: Remains on sliding scale insulin -02/14: Will plan to start on metformin at discharge #DVT ppx: SCDs Nida Kaur MD Time spent in the patient's overall evaluation,decision-making process, review of diagnostic data, adjustment of management, discussion with other providers, nursing nursing and ancillary staff involved in patient's care documentation, 37 Minutes Charges/Coding Visit Charges Inpatient E&M: 73167 Subs Hosp L2 NIHSS NIHSS Nursing Documentation NIHSS Nursing Documentation: NIH Stroke Scale Start: 02/11/25 12:43 Freq: Status: Discharge Protocol: Activity Type Activity Date Activity User E-sign Co-sign Detail Recorded Client Recorded Date Recorded By Document 02/11/25 12:43 [id number] 02/11/25 12:44 AC 02/11/25 12:43 NIH Stroke Scale [NIHSS] A score of 0 is normal or asymptomatic . Total possible score is 42. Inpatient: RN or Physician to activate a stroke alert for onset of new stroke symptoms or with NIHSS increase >/= 3 points. Following change in neurological status, NIHSS will be performed per physician order or more frequently PRN. -1a. Level of Consciousness 0 - Alert; keenly responsive -1b. LOC Questions 0 - Answers BOTH questions correctly -1c. LOC Commands 0 - Performs BOTH tasks correctly -2. Best Gaze 0 - Normal -3. Visual 0 - No visual loss -4. Facial Palsy 0 - Normal symmetrical movements -5a. Left Arm 0 - No drift; arm holds 90 ( or 45) degrees for full 10 seconds -5b. Right Arm 0 - No drift; arm holds 90 ( or 45) degrees for full 10 seconds -6a. Left Leg 0 - No drift; leg holds 30- degree position for full 5 seconds -6b. Right Leg 0 - No drift; leg holds 30- degree position for full 5 seconds -7. Limb Ataxia 0 - Absent -8. Sensory 0 - Normal; no sensory loss -9. Best Language 0 - No aphasia; normal -10. Dysarthria 1 = Mild-to- moderate dysarthria; -11. Extinction and Inattention 0 - No abnormality -Total 1 Query Text:A score of 0 is normal or asymptomatic. Total possible score is 42 . ED: Notify Physician for NIHSS increase by > / = 3 points. Inpatient: RN or Physician to activate a stroke alert for NIHSS increase of > / = 3 points. NIHSS: Ischemic Stroke/TIA Start: 02/11/25 17:47 Text: For PCU Patients: NIH and Neuro Check every 4 Status: Complete hours, PRN and with change in RN caregiver. Freq: [id number] Protocol: Activity Type Activity Date Activity User E-sign Co-sign Detail Recorded Client Recorded Date Recorded By Document 02/12/25 12:58 KIKI [id number] 02/12/25 13:04 KIKI 02/12/25 12:58 -1a. Level of Consciousness 0 - Alert; keenly responsive -1b. LOC Questions 0 - Answers BOTH questions correctly -1c. LOC Commands 0 - Performs BOTH tasks correctly -2. Best Gaze 0 - Normal -3. Visual 0 - No visual loss -4. Facial Palsy 1 - Minor paralysis ( flattened nasolabial fold , asymmetry on smiling) -5a. Left Arm 0 - No drift; arm holds 90 ( or 45) degrees for full 10 seconds -5b. Right Arm 0 - No drift; arm holds 90 ( or 45) degrees for full 10 seconds -6a. Left Leg 0 - No drift; leg holds 30- degree position for full 5 seconds -6b. Right Leg 0 - No drift; leg holds 30- degree position for full 5 seconds -7. Limb Ataxia 0 - Absent -8. Sensory 0 - Normal; no sensory loss -9. Best Language 0 - No aphasia; normal -10. Dysarthria 1 = Mild-to- moderate dysarthria; -11. Extinction and Inattention 0 - No abnormality -Total 2 Query Text:A score of 0 is normal or asymptomatic. Total possible score is 42 . ED: Notify Physician for NIHSS increase by > / = 3 points. Inpatient: RN or Physician to activate a stroke alert for NIHSS increase of > / = 3 points. Coma Scale [Assess] -Eye Opening Spontaneous -Motor Obeys Commands -Verbal Oriented [Total] -Coma Scale Total 15
[2025-02-14 17:00] VITALS: BMI 27.8
[2025-02-14 19:56] VITALS: BP 168/70; PULSE 62; RESP 16; TEMP 36.6; O2SAT 97
[2025-02-14] MEDS: Senna/Docusate Sodium 1 Tablet 2 TABLET PO (20:08)
[2025-02-14] MEDS: 0.9% Saline Lock 10 ML Syringe IV (20:08)
[2025-02-15 04:00] VITALS: BP 171/75; PULSE 60; RESP 18; TEMP 36.6; O2SAT 96
[2025-02-15 04:46] VITALS: BMI 27.8
[2025-02-15 05:03] LABS: Hematocrit 34.9 % (40-54); Hemoglobin 11.1 g/dL (13.0-16.5); Immature Granulocytes Count 0.040 X10^3/uL (0.0-0.0); Mean Corp Hgb Conc 31.8 g/dL (32-36); Mean Corpuscular Volume 86.4 fL (80-94); Mean Platelet Vol. 12.6 fl (6.2-12.0); NRBC Flagged by Analyzer 0 % (0-5); Platelet Count 235 K/mm3 (150-450); RBC Distribution Width CV 14.5 % (11.6-14.6); RBC Distribution Width SD 46.1 fl (35.1-43.9); Red Blood Count 4.04 M/mm3 (4.6-6.2); White Blood Count 6.7 K/mm3 (4.4-11.0)
[2025-02-15 05:35] LABS: Anion Gap 13 (5-15); BUN 40 mg/dL (4-19); BUN/Creat Ratio 22.9 RATIO (10-20); Calcium,Total 8.8 mg/dL (7.6-11.0); Carbon Dioxide 22.9 mmol/L (21.0-32.0); Chloride 100 mmol/L (98-108); Estimated Creatinine Clearance 37.44 ml/min (50-250); Glucose 155 mg/dL (70-99); Potassium 4.2 mmol/L (3.3-5.1)
[2025-02-15] MEDS: Senna/Docusate Sodium 1 Tablet 2 TABLET PO (06:17)
[2025-02-15 09:04] VITALS: BP 186/71; PULSE 63; RESP 18; TEMP 36.4; O2SAT 96
[2025-02-15] MEDS: 0.9% Saline Lock 10 ML Syringe IV ×2 (09:10→21:54)
[2025-02-15] MEDS: 0.9% Normal Saline (500mL Bag) 500 ML 999 ML IV (09:10)
[2025-02-15 10:15] VITALS: BP 169/76
--- NOTE | 2025-02-15 10:18 | CASEMGMT ---
Addendum entered by Azalea Way 02/15/25 13:52: MELVINA FERNANDEZ in to updated patient about denial for Rehab Unit and that they may approve TCU or SNF. Patient declined SNF list and prefers [facility] TCU. Patient had no further questions or concerns. MELVINA FERNANDEZ made referral to TCU, awaiting acceptance and precert. Addendum entered by Azalea Way 02/15/25 13:24: MELVINA FERNANDEZ update by hospitalist that peer 2 peer denial was upheld for acute rehab but per medical data analyst patient is appropriate for SNF/TCU. MELVINA FERNANDEZ updated Kaye in Rehab Unit and she states she may have a bed later today if patient would prefer TCU. MELVINA FERNANDEZ to updated patient and provide SNF list for preferences. CM will continue to follow this patient and plan for a safe discharge. Original Note: MELVINA FERNANDEZ updated by Kaye in Rehab Unit that [facility] is requesting peer 2 peer be completed by 9am 04/18/24. MELVINA FERNANDEZ updated hospitalist and is agreeable to complete peer 2 peer. MELVINA FERNANDEZ called [phone] to arrange for peer 2 peer. Per Eladia, time is scheduled for 1300 today and medical data analyst will call hospitalist directly at 1300. MELVINA FERNANDEZ updated hospitalist of peer 2 peer time. CM will continue to follow this patient and plan for a safe discharge.
[2025-02-15 14:53] VITALS: BP 170/73; PULSE 68; RESP 18; TEMP 36.4; O2SAT 94
--- NOTE | 2025-02-15 17:38 | PN.HOSP_ITS ---
Reason for Visit
--- NOTE | 2025-02-15 17:38 | PCM.PN.HOSP ---
Reason for Visit Chief Complaint: Neurologic abnormalities Subjective Subjective Continues to be unsteady, motivated for improvement Objective Data Objective Data Vital Signs: Vital Signs Temp Pulse Resp BP Pulse Ox O2 Del Method 97.5 F L 68 18 170/73 H 94 Room Air 02/15/25 14:53 02/15/25 14:53 02/15/25 14:53 02/15/25 14:53 02/15/25 14:53 02/15/25 14:53 Oxygen Delivery Method Room Air Weight: 90.4 kg Body Mass Index (BMI) 27.8 Intake & Output: Intake and Output for Last 24 Hours 02/13/25 02/14/25 02/15/25 23:59 23:59 23:59 Intake Total 495 / 495 980 / 980 Balance 495 / 495 980 / 980 Lab / Micro Data 02/15/25 03:43 02/15/25 03:43 Labs: Laboratory Results - last 24 hr 02/14/25 18:17: POC Glucose 151 H 02/14/25 23:18: POC Glucose 143 H 02/15/25 03:43: WBC 6.7, RBC 4.04 L, Hgb 11.1 L, Hct 34.9 L, MCV 86.4, MCH 27.5, MCHC 31.8 L, RDW Std Deviation 46.1 H, RDW Coeff of Lisa 14.5, Plt Count 235, MPV 12.6 H, Immature Gran % (Auto) 0.600, Neut % (Auto) 65.8, Lymph % (Auto) 22.0, [place] % (Auto) 9.1, Eos % (Auto) 2.1, Baso % (Auto) 0.4, Absolute Neuts (auto) 4.4, Absolute Lymphs (auto) 1.47, Nucleated RBC % 0, Sodium 136, Potassium 4.2, Chloride 100, Carbon Dioxide 22.9, Anion Gap 13, BUN 40 H, Creatinine 1.75 H, Estim Creat Clear Calc 37.44 L, Est GFR (MDRD) Non-Af 38 L, BUN/Creatinine Ratio 22.9 H, Glucose 155 H, Calcium 8.8 02/15/25 06:16: POC Glucose 156 H 02/15/25 11:36: POC Glucose 240 H Rhythm Strip Rhythm Strip: Sinus Rhythm Rate: 73 Ectopy: None Physical Exam Narrative General: Alert, oriented, no acute distress HEENT: Atraumatic, still appears to have some left lower facial droop Eyes: Anicteric, normal conjunctiva, extraocular movements intact, pupils equal Neck: Supple Respiratory: Clear to auscultation bilaterally, normal respiratory effort Cardiovascular: Regular rate and rhythm GI: Soft, nontender, nondistended Musculoskeletal: Moving all extremities Neuro: Some slight flattening of left nasolabial fold, otherwise cranial nerves II through XII intact Skin: Chronic changes on lower extremities Psych: Cooperative Assessment & Plan Assessment/Plan (1) Acute CVA (cerebrovascular accident): PLAN: Plan # Left hand tingling, dysarthria, difficulty walking-found to have acute/subacute ischemic infarct of right ana -Admit to tele -CT head w/ subtle hypodensity in right ana which could be an acute lacunar type infarct but unclear, no hemorrhage -CTA head and neck with no LVO -MRI ordered -NIH q4hr -asa, statin -Echo -PT/OT/Speech eval -Teleneuro consult ordered -Hold BP medications to allow for permissive hypertension for 24 hours unless SBP greater than 220 or DBP greater than 120 or until stroke is ruled out -02/12: MRI noted acute/subacute ischemic infarction of the brainstem specifically involving the right ana. Symptoms similar to yesterday not slightly improved. Discussed with neuro, is advised to continue aspirin and statin and complete CVA workup with TTE which will be completed tomorrow. Discussed findings with patient and family, patient open to placement if needed given he is still unsteady -02/13: TTE with an EF of 65% and stage I diastolic dysfunction, RVSP of 41. Stroke workup complete, continue aspirin and statin, will have plan for Holter monitor on discharge. Additionally plan is going to be for rehab prior to DC home. Will need to follow-up with neurology in 4 to 6 weeks. Discussed with neurology -02/14: Patient medically ready for discharge, awaiting insurance authorization for patient to go to med rehab -02/15: Patient denied med rehab, attempted peer to peer but was told he would be appropriate for a SNF/swing/TCU bed but not appropriate for an inpatient med rehab. 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 Patient asymptomatic and is better than on presentation when systolic was 260. Continue to adjust -02/14: Slowly improving, given blood pressure with 260s systolic when he came in patient is improving, will need continued titration on discharge -02/15: Continue present medications and adjust over time for better titration of blood pressure #Type 2 diabetes mellitus -Hemoglobin 8.1, not on anything at home and no known history of diabetes -Glucose checks and sliding scale insulin - Can likely start on metformin on discharge or alternative agent and follow-up with a primary care provider on discharge -02/12: Discussed with patient about diabetic diet, patient seen by dietitian, he is aware he will likely be started on medication for diabetes on discharge -02/13: Remains on sliding scale insulin -02/14: Will plan to start on metformin at discharge -02/15: Continue education and sliding scale insulin #DVT ppx: SCDs Nida Kaur MD Time spent in the patient's overall evaluation,decision-making process, review of diagnostic data, adjustment of management, discussion with other providers, nursing nursing and ancillary staff involved in patient's care documentation, 40 Minutes Charges/Coding Visit Charges Inpatient E&M: 30069 Subs Hosp L2 NIHSS NIHSS Nursing Documentation NIHSS Nursing Documentation: NIH Stroke Scale Start: 02/11/25 12:43 Freq: Status: Discharge Protocol: Activity Type Activity Date Activity User E-sign Co-sign Detail Recorded Client Recorded Date Recorded By Document 02/11/25 12:43 [id number] 02/11/25 12:44 AC 02/11/25 12:43 NIH Stroke Scale [NIHSS] A score of 0 is normal or asymptomatic . Total possible score is 42. Inpatient: RN or Physician to activate a stroke alert for onset of new stroke symptoms or with NIHSS increase >/= 3 points. Following change in neurological status, NIHSS will be performed per physician order or more frequently PRN. -1a. Level of Consciousness 0 - Alert; keenly responsive -1b. LOC Questions 0 - Answers BOTH questions correctly -1c. LOC Commands 0 - Performs BOTH tasks correctly -2. Best Gaze 0 - Normal -3. Visual 0 - No visual loss -4. Facial Palsy 0 - Normal symmetrical movements -5a. Left Arm 0 - No drift; arm holds 90 ( or 45) degrees for full 10 seconds -5b. Right Arm 0 - No drift; arm holds 90 ( or 45) degrees for full 10 seconds -6a. Left Leg 0 - No drift; leg holds 30- degree position for full 5 seconds -6b. Right Leg 0 - No drift; leg holds 30- degree position for full 5 seconds -7. Limb Ataxia 0 - Absent -8. Sensory 0 - Normal; no sensory loss -9. Best Language 0 - No aphasia; normal -10. Dysarthria 1 = Mild-to- moderate dysarthria; -11. Extinction and Inattention 0 - No abnormality -Total 1 Query Text:A score of 0 is normal or asymptomatic. Total possible score is 42 . ED: Notify Physician for NIHSS increase by > / = 3 points. Inpatient: RN or Physician to activate a stroke alert for NIHSS increase of > / = 3 points. NIHSS: Ischemic Stroke/TIA Start: 02/11/25 17:47 Text: For PCU Patients: NIH and Neuro Check every 4 Status: Complete hours, PRN and with change in RN caregiver. Freq: [id number] Protocol: Activity Type Activity Date Activity User E-sign Co-sign Detail Recorded Client Recorded Date Recorded By Document 02/12/25 12:58 Vicente [id number] 02/12/25 13:04 Vicente 02/12/25 12:58 -1a. Level of Consciousness 0 - Alert; keenly responsive -1b. LOC Questions 0 - Answers BOTH questions correctly -1c. LOC Commands 0 - Performs BOTH tasks correctly -2. Best Gaze 0 - Normal -3. Visual 0 - No visual loss -4. Facial Palsy 1 - Minor paralysis ( flattened nasolabial fold , asymmetry on smiling) -5a. Left Arm 0 - No drift; arm holds 90 ( or 45) degrees for full 10 seconds -5b. Right Arm 0 - No drift; arm holds 90 ( or 45) degrees for full 10 seconds -6a. Left Leg 0 - No drift; leg holds 30- degree position for full 5 seconds -6b. Right Leg 0 - No drift; leg holds 30- degree position for full 5 seconds -7. Limb Ataxia 0 - Absent -8. Sensory 0 - Normal; no sensory loss -9. Best Language 0 - No aphasia; normal -10. Dysarthria 1 = Mild-to- moderate dysarthria; -11. Extinction and Inattention 0 - No abnormality -Total 2 Query Text:A score of 0 is normal or asymptomatic. Total possible score is 42 . ED: Notify Physician for NIHSS increase by > / = 3 points. Inpatient: RN or Physician to activate a stroke alert for NIHSS increase of > / = 3 points. Coma Scale [Assess] -Eye Opening Spontaneous -Motor Obeys Commands -Verbal Oriented [Total] -Coma Scale Total 15
[2025-02-15 21:45] VITALS: BP 155/69; PULSE 56; RESP 18; TEMP 36.6; O2SAT 97
[2025-02-15 22:13] VITALS: BMI 27.8
[2025-02-16 04:15] VITALS: BP 156/71; PULSE 55; RESP 16; TEMP 36.6; O2SAT 97
[2025-02-16 06:17] LABS: Hematocrit 32.4 % (40-54); Hemoglobin 10.6 g/dL (13.0-16.5); Immature Granulocytes Count 0.030 X10^3/uL (0.0-0.0); Mean Corp Hgb Conc 32.7 g/dL (32-36); Mean Corpuscular Volume 85.7 fL (80-94); Mean Platelet Vol. 12.2 fl (6.2-12.0); NRBC Flagged by Analyzer 0 % (0-5); Platelet Count 197 K/mm3 (150-450); RBC Distribution Width CV 14.5 % (11.6-14.6); RBC Distribution Width SD 45.2 fl (35.1-43.9); Red Blood Count 3.78 M/mm3 (4.6-6.2); White Blood Count 6.7 K/mm3 (4.4-11.0)
[2025-02-16 06:47] LABS: Anion Gap 10 (5-15); BUN 43 mg/dL (4-19); BUN/Creat Ratio 27.5 RATIO (10-20); Calcium,Total 9.0 mg/dL (7.6-11.0); Carbon Dioxide 23.9 mmol/L (21.0-32.0); Chloride 103 mmol/L (98-108); Estimated Creatinine Clearance 42.27 ml/min (50-250); Glucose 175 mg/dL (70-99); Potassium 4.3 mmol/L (3.3-5.1)
[2025-02-16 09:42] VITALS: BP 179/61; PULSE 57; RESP 16; TEMP 36.8; O2SAT 96
[2025-02-16 11:32] VITALS: BP 159/66; PULSE 66
--- NOTE | 2025-02-16 12:20 | CASEMGMT ---
Addendum entered by Willow Rodriguez 02/16/25 15:27: Social Work Per physician, peer to peer was completed and pt is approved for TCU. ROSANNA spoke with Kaye in TCU who confirms approval and pt can admit today. Physician updated and pt is ready for dc today. Discharge orders tubed to TCU and Kaye notified of admission. Nurse updated. ROSANNA met with pt and pt's listed contact Kallie and informed that insurance denied Inpatient rehab stay but has approved TCU stay. Pt is understanding and agreeable to dc plan. Disposition: TCU, skilled level of care KENNETH Coburn Original Note: Social Work ROSANNA spoke with Kaye in TCU. A peer to peer has been offered. ROSANNA informed physician, who is willing to complete peer to peer. Phone call to Jennifer and ROSANNA spoke with Kendall. Peer to Peer set for 1240 today. [facility] physician to call Dr. Kaur directly. KENNETH Renteria
[2025-02-16 14:41] VITALS: BP 165/70; PULSE 65; RESP 18; TEMP 36.7; O2SAT 96
--- NOTE | 2025-02-16 14:41 | PCM.TXEXTCAR ---
Diet Diet Order/Speech Therapy: INPATIENT Hospital Diet / Speech Therapy Order(s) 02/12/25 16:30 Diet: Cardiac: Calorie-Controlled Food consistency:: Easy to Chew Liquid Consistency:: Regular/Thin Dietary Modifications:: Consistent Carbohydrate Speech Therapy Comments: Distant sup, limit distractions (TV off), sips 1 at a time How many daily calories?: 1999 calorie Routine Orders/Code Status Suppository Type: Dulcolax 10mg Suppository Frequency: Daily PRN Routine Lab Work: BMP (3 days to check kidney function) Code Status: Full Code DC O2, CPAP, BIPAP needs Home O2 Discharge instructions: No Wound(s) Left chang: Wound Type: Abrasion Under right eye: Wound Type: Pressure Injury Therapies Physical Therapy: Eval and Treat Occupational Therapy: Eval and Treat Problem/Diagnosis (1) Acute CVA (cerebrovascular accident): Status: Acute Code(s): I63.9 - Cerebral infarction, unspecified (2) Hypertension: Status: Chronic Code(s): I10 - Essential (primary) hypertension (3) Diabetes mellitus, type 2: Status: Acute Code(s): E11.9 - Type 2 diabetes mellitus without complications Plan #Acute CVA (cerebrovascular accident): -acute/subacute ischemic infarct of right ana #HTN emergency- resolved #Essential HTN # New onset type 2 diabetes mellitus 84-year-old male history of hypertension not on medications presented to [facility] ED 02/11/2025 due to dysarthria, unsteady gait, and tingling in his left hand. Patient was a stroke call in the ED but was outside of the window for TNK. CTA with no LVO and CT head with subtle hypodensity in right ana which could be an acute lacunar infarct but not definitive. Vitals upon arrival with temp 98.2, heart rate 73, blood pressure 263/106, respiratory rate 16 and pulse ox 97% on room air. Hemoglobin of 12.7 and normal white blood cell count. BMP with a BUN of 24 and a creatinine of 1.43 with no other recent values available. First troponin 78 with a repeat of 69 and subsequent 48. TSH 4.6 and hemoglobin A1c found to be 8.1. Hospitalist contacted for admission. Ultimately patient had an MRI which noted the acute/subacute ischemic infarction of brainstem specifically involving right ana. Patient with ataxic gait, left-sided facial droop, mild dysarthria, left hand weakness with some improvement in sensory changes. During his hospitalization he was noted to have significant hypertension, on arrival blood pressure to 60s and patient had multiple agents added with slow downtrend of blood pressure. Remains hypertensive however significantly improved from presentation and will need long-term adjustment of these medicines. Patient also found to have hemoglobin A1c in diabetes range so he is on glucose checks and sliding scale insulin with plan to start oral medication on discharge. On day of discharge patient reports feeling slightly better, still unsteady but is working with therapy and motivated to improve. No new or acute complaints. Discharge instructions as follows: DISCHARGE INSTRUCTIONS PLEASE READ *Please take this with you to your next doctors appointment* - Will be discharged on metformin and will need to follow-up for adjustment and monitoring of diabetes moving forward - You will be discharged on 2 blood pressure medications which will also require adjustment and monitoring moving forward -Would recommend lab work (BMP) to check your kidney function in 2 to 3 days through your primary care physician's office. Please call their office upon discharge to obtain order for lab work. - Will be discharged on aspirin and atorvastatin and teleneurology is recommended that you be discharged with an order for an event monitor -Please follow-up with neurology upon discharge, you can establish with a local neurology office, Dr. Mora's office, upon discharge to schedule an appointment for establishing care post stroke ( [phone]) -Please call your primary care provider's office upon discharge to schedule a hospital follow up within 1 week. -For any concerning signs or symptoms please call 911 or proceed to the nearest emergency department Allergies/Procedures Done in Hospital Allergies No Known Allergies Allergy (Verified 02/11/25 12:41) Procedures: 2-D Echocardiogram Type of Care/Length of Stay Estimated LOS: Convalescent Care Less Than 30 days Type of Care Needed: Skilled Rehab Potential: Good Prognosis: Good Additional Orders/Day of Discharge Day of Discharge: 02/16/25 Dietary and Speech Recommendations Dietitian Recommendations/Changes: Will change diet to 2000 calorie; cardiac/consistent carbohydrate. ONS not indicated; PO is good at meals and weight is stable. Additional diet education as needed prior to d/c. Discharge Plan Admission Admit Date/Time: 02/12/25 16:08 Primary Reason for Your Visit: Acute stroke Attending Provider: Nida Kaur Primary Care Provider: Sotero Sarabia Consulting Providers: Manjit Clay; Ghada Gr; Maegan Moore; Rosaline Tabor; Jessica Dorado; Donny Mcdonald; Daphne Mahmood; Navjot Boo; Rahul Willard; Marv Ashton; Selene Abebe; Chloe Hartley; Gerogi Pedraza; Radha Rome; Deniz Munoz; Cha Rubalcava; Ronn Hernandez; Nilsa Quiros; Norbert Ingram; Ondina Lucas; John Luna Instructions Patient Instructions: Discharge Instructions for Stroke Additional Instructions / Restrictions: DISCHARGE INSTRUCTIONS PLEASE READ *Please take this with you to your next doctors appointment* - Will be discharged on metformin and will need to follow-up for adjustment and monitoring of diabetes moving forward - You will be discharged on 2 blood pressure medications which will also require adjustment and monitoring moving forward -Would recommend lab work (BMP) to check your kidney function in 2 to 3 days through your primary care physician's office. Please call their office upon discharge to obtain order for lab work. - Will be discharged on aspirin and atorvastatin and teleneurology is recommended that you be discharged with an order for an event monitor -Please follow-up with neurology upon discharge, you can establish with a local neurology office, Dr. Mora's office, upon discharge to schedule an appointment for establishing care post stroke ) -Please call your primary care provider's office upon discharge to schedule a hospital follow up within 1 week. -For any concerning signs or symptoms please call 911 or proceed to the nearest emergency department Discharge Orders/Prescriptions Prescriptions: New atorvastatin 40 mg Tablet 40 mg PO QHS Qty: 0 0RF metformin 500 mg Tablet 500 mg PO BIDCM Qty: 0 0RF amlodipine 10 mg Tablet 10 mg PO DAILY Qty: 0 0RF pantoprazole 40 mg Tablet,Delayed Release (Dr/Ec) 40 mg PO DAILY Qty: 0 0RF hydrochlorothiazide 12.5 mg Capsule 12.5 mg PO DAILY Qty: 0 0RF aspirin 81 mg Tablet,Chewable 81 mg PO BREAKFAST Qty: 0 0RF Other Ambulatory Orders: 30 Day Event Recorder Preventi (Urgent) Timeframe: 1 Day Facility: [facility] - Location: Cardiovascular Services Ordered By: Dr. Nida Kaur Referrals / Follow Up: Sotero Sarabia MD [Primary Care Provider, Family Practice] Luis Mora MD [Non-Staff -Ordering Privileges, Neurology] Referral Note: -Please follow-up with neurology upon discharge in 4 to 6 weeks, you can establish with a local neurology office, Dr. Mora's office, upon discharge to schedule an appointment for establishing care post stroke ) Disposition Disposition (needs filled in before D/C Order can be placed): [facility]
--- NOTE | 2025-02-16 14:45 | PCM.DC.SUM ---
Providers Date of Admission: 02/12/25 Date of Discharge: 02/16/25 Primary Care Physician: Dr. Sotero Sarabia MD Consultations 02/11/25 17:47 Consult: Tele-Neurology Routine Consulting Provider: [facility] Reason for Consult: Acute Ischemic Stroke/TIA EMERGENT Consult: No MD Notified: Yes Date Notified: 02/11/25 Time Notified: 21:23 Method of Notification: Answering Service Nursing Unit Staff Notify [facility] of Tele-Neurology Consult: Yes Reason For Visit: CVA RULE OUT, HYPERTENSIVE URGENCY VERSUS Diagnosis Discharge Diagnosis (1) Acute CVA (cerebrovascular accident): Status: Acute Code(s): I63.9 - Cerebral infarction, unspecified (2) Hypertension: Status: Chronic Code(s): I10 - Essential (primary) hypertension (3) Diabetes mellitus, type 2: Status: Acute Code(s): E11.9 - Type 2 diabetes mellitus without complications Plan #Acute CVA (cerebrovascular accident): -acute/subacute ischemic infarct of right ana #HTN emergency- resolved #Essential HTN # New onset type 2 diabetes mellitus Medications at Discharge Home Medications amlodipine 10 mg tablet 10 mg PO DAILY #0 tabs 02/16/25 aspirin 81 mg chewable tablet 81 mg PO BREAKFAST #0 tabs 02/16/25 atorvastatin 40 mg tablet 40 mg PO QHS #0 tabs 02/16/25 hydrochlorothiazide 12.5 mg capsule 12.5 mg PO DAILY #0 caps 02/16/25 metformin 500 mg tablet 500 mg PO BIDCM #0 tabs 02/16/25 pantoprazole 40 mg tablet,delayed release 40 mg PO DAILY #0 tabs 02/16/25 Hospital Course Summary of Care Provided Minutes Spent on Discharge: 35 Hospital Course: 84-year-old male history of hypertension not on medications presented to [facility] ED 02/11/2025 due to dysarthria, unsteady gait, and tingling in his left hand. Patient was a stroke call in the ED but was outside of the window for TNK. CTA with no LVO and CT head with subtle hypodensity in right ana which could be an acute lacunar infarct but not definitive. Vitals upon arrival with temp 98.2, heart rate 73, blood pressure 263/106, respiratory rate 16 and pulse ox 97% on room air. Hemoglobin of 12.7 and normal white blood cell count. BMP with a BUN of 24 and a creatinine of 1.43 with no other recent values available. First troponin 78 with a repeat of 69 and subsequent 48. TSH 4.6 and hemoglobin A1c found to be 8.1. Hospitalist contacted for admission. Ultimately patient had an MRI which noted the acute/subacute ischemic infarction of brainstem specifically involving right ana. Patient with ataxic gait, left-sided facial droop, mild dysarthria, left hand weakness with some improvement in sensory changes. During his hospitalization he was noted to have significant hypertension, on arrival blood pressure to 60s and patient had multiple agents added with slow downtrend of blood pressure. Remains hypertensive however significantly improved from presentation and will need long-term adjustment of these medicines. Patient also found to have hemoglobin A1c in diabetes range so he is on glucose checks and sliding scale insulin with plan to start oral medication on discharge. On day of discharge patient reports feeling slightly better, still unsteady but is working with therapy and motivated to improve. No new or acute complaints. Discharge instructions as follows: DISCHARGE INSTRUCTIONS PLEASE READ *Please take this with you to your next doctors appointment* - Will be discharged on metformin and will need to follow-up for adjustment and monitoring of diabetes moving forward - You will be discharged on 2 blood pressure medications which will also require adjustment and monitoring moving forward -Would recommend lab work (BMP) to check your kidney function in 2 to 3 days through your primary care physician's office. Please call their office upon discharge to obtain order for lab work. - Will be discharged on aspirin and atorvastatin and teleneurology is recommended that you be discharged with an order for an event monitor -Please follow-up with neurology upon discharge, you can establish with a local neurology office, Dr. Mora's office, upon discharge to schedule an appointment for establishing care post stroke (ph [phone]) -Please call your primary care provider's office upon discharge to schedule a hospital follow up within 1 week. -For any concerning signs or symptoms please call 911 or proceed to the nearest emergency department Physical Exam Narrative General: Alert, oriented, no acute distress HEENT: Atraumatic, still appears to have some left lower facial droop Eyes: Anicteric, normal conjunctiva, extraocular movements intact, pupils equal Neck: Supple Respiratory: Clear to auscultation bilaterally, normal respiratory effort Cardiovascular: Regular rate and rhythm GI: Soft, nontender, nondistended Musculoskeletal: Moving all extremities Neuro: Some slight flattening of left nasolabial fold, otherwise cranial nerves II through XII intact Skin: Chronic changes on lower extremities Psych: Cooperative Weight / BMI Weight Weight: 90.4 kg Body Mass Index (BMI) 27.8 ABG / Lab / Microbiology Data 02/16/25 05:48 02/16/25 05:48 Laboratory: Laboratory Results - last 24 hr 02/15/25 17:02: POC Glucose 123 H 02/15/25 21:53: POC Glucose 191 H 02/16/25 05:48: WBC 6.7, RBC 3.78 L, Hgb 10.6 L, Hct 32.4 L, MCV 85.7, MCH 28.0, MCHC 32.7, RDW Std Deviation 45.2 H, RDW Coeff of Lisa 14.5, Plt Count 197, MPV 12.2 H, Immature Gran % (Auto) 0.500, Neut % (Auto) 73.5 H, Lymph % (Auto) 15.9 L, Clay % (Auto) 8.4, Eos % (Auto) 1.4, Baso % (Auto) 0.3, Absolute Neuts (auto) 4.9, Absolute Lymphs (auto) 1.06, Nucleated RBC % 0, Sodium 137, Potassium 4.3, Chloride 103, Carbon Dioxide 23.9, Anion Gap 10, BUN 43 H, Creatinine 1.55 H, Estim Creat Clear Calc 42.27 L, Est GFR (MDRD) Non-Af 44 L, BUN/Creatinine Ratio 27.5 H, Glucose 175 H, Calcium 9.0 02/16/25 06:32: POC Glucose 163 H 02/16/25 11:35: POC Glucose 181 H D/C Instructions DC O2, CPAP, BIPAP Needs Home O2 Discharge instructions: No Meaningful Use Info Meaningful Use Meaningful Use Diagnoses (Choose all that apply): Ischemic CVA CVA Therapy Assessed for PT,OT and/or ST?: Yes Ischemic Stroke Antithrombotic order at d/c?: Yes Dx of Atrial fib/flutter?: No Statins at discharge?: Yes Primary Dx Acute Ischemic CVA?: Yes Discharge Plan Admission Admit Date/Time: 02/12/25 16:08 Primary Reason for Your Visit: Acute stroke Attending Provider: Nida Kaur Primary Care Provider: Sotero Sarabia Consulting Providers: Manjit Clay; Ghada Gr; Maegan Moore; Rosaline Tabor; Jessica Dorado; Donny Mcdonald; Daphne Mahmood; Navjot Boo; Rahul Willard; Marv Ashton; Selene Abebe; Chloe Hartley; Georgi Pedraza; Radha Rome; Deniz Munoz; Cha Rubalcava; Ronn Hernandez; Nilsa Quiros; Norbert Ingram; Ondina Lucas; John Luna Instructions Patient Instructions: Discharge Instructions for Stroke Additional Instructions / Restrictions: DISCHARGE INSTRUCTIONS PLEASE READ *Please take this with you to your next doctors appointment* - Will be discharged on metformin and will need to follow-up for adjustment and monitoring of diabetes moving forward - You will be discharged on 2 blood pressure medications which will also require adjustment and monitoring moving forward -Would recommend lab work (BMP) to check your kidney function in 2 to 3 days through your primary care physician's office. Please call their office upon discharge to obtain order for lab work. - Will be discharged on aspirin and atorvastatin and teleneurology is recommended that you be discharged with an order for an event monitor -Please follow-up with neurology upon discharge, you can establish with a local neurology office, Dr. Mora's office, upon discharge to schedule an appointment for establishing care post stroke ( [phone]) -Please call your primary care provider's office upon discharge to schedule a hospital follow up within 1 week. -For any concerning signs or symptoms please call 911 or proceed to the nearest emergency department Discharge Orders/Prescriptions Prescriptions: New atorvastatin 40 mg Tablet 40 mg PO QHS Qty: 0 0RF metformin 500 mg Tablet 500 mg PO BIDCM Qty: 0 0RF amlodipine 10 mg Tablet 10 mg PO DAILY Qty: 0 0RF pantoprazole 40 mg Tablet,Delayed Release (Dr/Ec) 40 mg PO DAILY Qty: 0 0RF hydrochlorothiazide 12.5 mg Capsule 12.5 mg PO DAILY Qty: 0 0RF aspirin 81 mg Tablet,Chewable 81 mg PO BREAKFAST Qty: 0 0RF Other Ambulatory Orders: 30 Day Event Recorder Preventi (Urgent) Timeframe: 1 Day Facility: [facility] - Location: Cardiovascular Services Ordered By: Dr. Nida Kaur Referrals / Follow Up: Sotero Sarabia MD [Primary Care Provider, Family Practice] Luis Mora MD [Non-Staff -Ordering Privileges, Neurology] Referral Note: -Please follow-up with neurology upon discharge in 4 to 6 weeks, you can establish with a local neurology office, Dr. Mora's office, upon discharge to schedule an appointment for establishing care post stroke ) Disposition Disposition (needs filled in before D/C Order can be placed): Assisted Facility Charges/Coding Visit Charges Inpatient E&M: 74018 Disch Hosp >30min
--- NOTE | 2025-02-16 15:14 | PHA.DC_ITS ---
Pharmacy DC Med Reconciliation
--- NOTE | 2025-02-16 15:14 | PHA.DC.MR.R ---
Pharmacy SC Med Reconciliation Pharmacy Service has performed discharge medication reconciliation for this patient. The patient's discharge medication list was reviewed for discrepancies and discrepancies were resolved. Medications at Discharge Home Medications amlodipine 10 mg tablet 10 mg PO DAILY #0 tabs 02/16/25 aspirin 81 mg chewable tablet 81 mg PO BREAKFAST #0 tabs 02/16/25 atorvastatin 40 mg tablet 40 mg PO QHS #0 tabs 02/16/25 hydrochlorothiazide 12.5 mg capsule 12.5 mg PO DAILY #0 caps 02/16/25 metformin 500 mg tablet 500 mg PO BIDCM #0 tabs 02/16/25 pantoprazole 40 mg tablet,delayed release 40 mg PO DAILY #0 tabs 02/16/25
[2025-02-16 15:40] VITALS: BP 165/70; PULSE 65; RESP 18; TEMP 36.7; O2SAT 96
--- NOTE | 2025-02-16 16:00 | NURSING ---
Called in report to MELVINA Coreas from [facility] at 16:00.
== END 2025-02-16 17:58 | disposition skilled nursing facility (03) | DRG 65 ==
LOC: ED 17:02 → PCU 17:19
PROVIDERS: Admitting Provider Internal Medicine; Emergency Provider Emergency Medicine; PCP Family Medicine; Visit Provider Internal Medicine
DX: I63.89 Other cerebral infarction (principal); I16.1 Hypertensive emergency; E11.9 Type 2 diabetes mellitus without complications; I10 Essential (primary) hypertension; R29.701 NIHSS score 1
CPT/HCPCS: 36415; 70450; 70496; 70498; 70551; 80048; 80061; 82962; 83036; 84439; 84443; 84484; 85025; 85610; 85730; 92610; 93005; 93306; 94762; 97162; 97165; 97530; 97535; 97802; 99285; 99406; Q9967; A4216; J2405

== ENCOUNTER 2025-02-16 18:48 | Inpatient (IN) | payer MEDICARE, SELFPAY ==
[2025-02-16 18:31] VITALS: BP 164/72; PULSE 61; RESP 16; TEMP 36.4; O2SAT 98
[2025-02-16 18:35] VITALS: BMI 27.6
[2025-02-16 20:00] VITALS: PULSE 85; RESP 16; O2SAT 95
--- NOTE | 2025-02-16 21:14 | PCM.HP.STD ---
HPI - General General Date of Admission: 02/16/25 Date of Service: 02/17/25 Chief Complaint: Here for rehabilitation. HPI Narrative MERCED ERICKSON, is a 84 Male who presents followin02/11/2025 [facility] ED Neuro S/Sx. Drove Christianity to and from [employer]. Right eye discomfort, left hand tingling, expressive aphasia. NIHSS 1, not TNK candidate due to time. BP [address] head possible right ana stroke, CTA head/neck negative LVO. 02/11/[address] [facility]. 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 Hold blood pressure medications for permissive HTN. 02/12/2025 Unsteady on feet, minimal tingling left hand, speech clear. More alert. MRI brain showed right ana infarct. Troponin 78, 64, 48, downtrending. EKG normal sinus rhythm, RBBB, LAFB. A1c 8.1, undiagnosed Diabetes Mellitus II, start Metformin on discharge, start sliding scale insulin for now. Start amlodipine for HTN. 02/13/2025 Echo Mild concentric LVH. Stage 1 diastolic dysfunction. RVSP 41mm HG. 02/13/2025 Improving, unsteady on feet, left hand improving. Amlodipine, add HCTZ for HTN. SSI, Metformin at discharge for Type 2 Diabetes Mellitus. 02/14/2025 Sitting up in chair, visiting with family. Continue to titrate blood pressure medications. Metformin at discharge for Diabetes Mellitus II. 02/15/2025 Unsteady, motivated for improvement. Continue blood pressure medications, adjust over time to control blood pressure. SSI for DM II. SCD dvt prophylaxis. 02/16/2025 Admit to TCU with debility, here for rehabilitation, strengthening, prior to discharge home alone. Patient c/o numbness/tingling in bilateral legs/feet, bilateral hands. [facility] Medical History (Updated 02/16/25 @ 21:[address] Kyle Juarez MD) Hypertension Diabetes Stroke/cerebrovascular accident Home Medications ?Medication ?Instructions ?Recorded ?Last Taken ?Type amlodipine 10 mg tablet 10 mg PO DAILY BP #0 tabs 02/16/25 Unknown Rx aspirin 81 mg chewable tablet 81 mg PO BREAKFAST heart health #0 02/16/25 Unknown Rx tabs atorvastatin 40 mg tablet 40 mg PO QHS cholesterol #0 tabs 02/16/25 Unknown Rx hydrochlorothiazide 12.5 mg capsule 12.5 mg PO DAILY water pill/BP #0 02/16/25 Unknown Rx caps metformin 500 mg tablet 500 mg PO BIDCM diabetes #0 tabs 02/16/25 Unknown Rx pantoprazole 40 mg tablet,delayed 40 mg PO DAILY acid reflux #0 tabs 02/16/25 Unknown Rx release Allergy/AdvReac Type Severity Reaction Status Date / Time No Known Allergies Allergy Verified 02/11/25 12:41 Family History (Updated 02/17/25 @ 07:[address] Kyle Juarez MD) Mother Asthma Father Cataract Surgical History (Updated 02/17/25 @ 07:[address] Kyle Juarez MD) History of bilateral inguinal hernia repair History of cataract surgery Social History (Updated 02/17/25 @ 07:[address] Kyle Juarez MD) household members: none number of children: 3 current occupation: [employer] Smoking Status: Never smoker alcohol intake: never substance use type: does not use ROS Constitutional Constitutional: Denies chills, fever(s) or weight gain ENT HEENT: Denies headache(s), nasal congestion or nasal discharge Cardiovascular Cardiovascular: Denies chest pain or palpitations Respiratory/Chest Respiratory/Chest: Denies cough, excessive phlegm production or shortness of breath with exertion Gastrointestinal Gastrointestinal: Denies abdominal pain, nausea or vomiting Genitourinary Genitourinary: Denies dysuria Musculoskeletal Musculoskeletal: Denies joint pain or joint swelling Integumentary Integumentary: Denies rash or wounds Neurologic Neurologic: Denies focal weakness, numbness or tingling Psychiatric Psychiatric: Denies anxiety, auditory hallucinations, depression, homicidal ideation or suicidal ideation Vital Signs Vital Signs Vital Signs: 02/16/25 18:31 Temperature 97.5 F L Temperature Source Temporal Pulse Rate 61 Respiratory Rate 16 Blood Pressure 164/72 H Blood Pressure Mean 102 Blood Pressure Source Monitor Blood Pressure Position Semi-Fowlers Blood Pressure Location Left Arm Pulse Ox 98 Oxygen Delivery Method Room Air Weight Weight: 89.811 kg Body Mass Index (BMI) 27.6 Physical Exam Const alert General Appearance: cooperative HEENT normocephalic Eyes PERRL and EOMs intact bilaterally Neck supple, no JVD and no carotid bruits Resp normal respiratory effort, normal air movement and clear to auscultation bilaterally Cardio regular rate and regular rhythm GI normal to inspection, nondistended, normoactive bowel sounds, non-tender and non-distended Extremity normal capillary refill General Extremity: Negative for edema Skin no rashes or lesions noted General Skin Exam: no breakdown Psych affect normal Appearance: appropriate Results Lab / Micro Data 02/17/25 05:26 02/17/25 05:26 Assessment & Plan Assessment/Plan (1) Debility: (2) Stroke: (3) Hypertension: (4) Diabetes mellitus, type 2: (5) Erectile dysfunction: (6) Hyperlipidemia, unspecified: PLAN: Plan 84 year old male with below past medical history hospitalized for right ana stroke, complicated by hypertension, undiagnosed type 2 diabetes, admitted to TCU with debility, here for rehabilitation, strengthening, prior to discharge home alone. Debility - PT/OT. Dysphagia - ST. Pain - Tylenol 1000mg q6 prn pain (1-10). Bowel - senna/colace 1 tablet bid, Magnesium citrate 300mL daily prn. Adult immunization - Administer pneumonia vaccine, covid vaccine, flu vaccine as appropriate. DVT prophylaxis - Lovenox 40mg sc daily. Hypertension - Amlodipine 10mg daily, HCTZ 12.5mg daily. Stroke - Aspirin 81mg daily. Hyperlipidemia - Atorvastatin 40mg qhs. Diabetes Mellitus II - Metformin 500mg bid, monitor blood sugar. GERD - Pantoprazole 40mg daily. Neuropathy - Monitor.
[2025-02-16] MEDS: Senna/Docusate Sodium 1 Tablet PO (22:15)
[2025-02-17 04:10] VITALS: RESP 18; O2SAT 96
[2025-02-17 04:27] VITALS: PULSE 50; O2SAT 97
[2025-02-17 05:55] LABS: Hematocrit 32.5 % (40-54); Hemoglobin 10.6 g/dL (13.0-16.5); Immature Granulocytes Count 0.030 X10^3/uL (0.0-0.0); Mean Corp Hgb Conc 32.6 g/dL (32-36); Mean Corpuscular Volume 86.9 fL (80-94); Mean Platelet Vol. 12.5 fl (6.2-12.0); NRBC Flagged by Analyzer 0 % (0-5); Platelet Count 193 K/mm3 (150-450); RBC Distribution Width CV 14.6 % (11.6-14.6); RBC Distribution Width SD 46.4 fl (35.1-43.9); Red Blood Count 3.74 M/mm3 (4.6-6.2); White Blood Count 6.5 K/mm3 (4.4-11.0)
[2025-02-17 06:17] LABS: Anion Gap 9 (5-15); BUN 40 mg/dL (4-19); BUN/Creat Ratio 25.4 RATIO (10-20); Calcium,Total 8.7 mg/dL (7.6-11.0); Carbon Dioxide 24.1 mmol/L (21.0-32.0); Chloride 105 mmol/L (98-108); Estimated Creatinine Clearance 38.21 ml/min (50-250); Glucose 149 mg/dL (70-99); Potassium 4.1 mmol/L (3.3-5.1)
[2025-02-17 08:53] VITALS: BP 164/71; PULSE 64; RESP 17; TEMP 36.6; O2SAT 95
[2025-02-17] MEDS: Tuberculin,Purif.prot.deriv. 50 TU/ML Vial 0.1 ML ID (09:02)
[2025-02-17] MEDS: Ammonium Lactate 225 gm Bottle 1 APPLIC TOPICAL ×2 (09:06→22:08)
[2025-02-17] MEDS: Senna/Docusate Sodium 1 Tablet PO ×2 (09:07→22:08)
--- NOTE | 2025-02-17 10:30 | MDS.RN ---
MDS Entry Tracker complete, Pain assessed.
--- NOTE | 2025-02-17 13:14 | NURSING ---
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 Prefers to be called Adrian. Adrian enjoys talking w/other and learning about their past. He talks about his cars and his time in the [employer]. He welcomes the coil connector repairer and therapy dog when available. Watches tv, reads and has his smartphone. Staff will encourage social activities in the day room, remind him of weekly activities and respect his right to say no.
--- NOTE | 2025-02-17 14:20 | CASEMGMT ---
Social Work SW met with pt to complete initial assessment and introduced self and role of SW.? Contacts were verified.? Pt confirmed code status as full code. Pt has completed a health care POA naming his friend Kallie. Copy is on file. SW educated pt to [facility] benefit with NRD of 02/20 and that continued stay is not guaranteed with each review. 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 Pt has a friend Kallie who pt reports is like an adopted granddgt. Pt picks Kallie up from work daily and brings her back to his house. Kallie assists with cleaning and grocery shopping and whatever else pt may need. Pt plans to return home to this level at time of dc. SW will continue to follow for DC planning. KENNETH Renteria
--- NOTE | 2025-02-17 14:28 | PCM.PN.DRR ---
Documented by User: Courtney Malcolm 02/17/25 14:56 TCU RX Drug Regimen Review Subjective/Objective Subjective/Objective Subjective: TCU Admission. 85 YOM presented to ER with neuro S/S. Hospitalized for right ana stroke, complicated by hypertension, undiagnosed type 2 diabetes. Admitted to TCU with debility for strengthening and rehabilitation. Objective: Allergies No Known Allergies Allergy (Verified 02/11/25 12:41) Current Medications Generic Name Dose Route Start Last Admin Trade Name Freq PRN Reason Stop Dose Admin Acetaminophen 1,000 mg 02/16/25 21:23 02/17/25 05:53 Acetaminophen 500 Mg Tablet PO 1,000 mg Q6H PRN PRN Administration Pain Score 1-10 Amlodipine Besylate 10 mg 02/17/25 10:00 02/17/25 09:02 Amlodipine 10 Mg Tablet PO 10 mg DAILY ANITA Administration Protocol Aspirin 81 mg 02/17/25 08:00 02/17/25 09:01 Aspirin 81 Mg Tab.Chew PO 81 mg BREAKFAST ANITA Administration Atorvastatin Calcium 40 mg 02/16/25 22:00 02/16/25 22:16 Atorvastatin Calcium 40 Mg Tablet PO 40 mg QHS ANITA Administration Calamine/Phenol 1 applic 02/17/25 10:00 02/17/25 09:06 Menthol/Lanolin/Calamine/Znox 113 Gm Tube TOPICAL 1 applic BID ANITA Administration Protocol Enoxaparin Sodium 40 mg 02/17/25 06:00 02/17/25 05:53 Enoxaparin 40 Mg/0.4 Ml Syringe SC 40 mg DAILY@0600 ANITA Administration Hydrochlorothiazide 12.5 mg 02/17/25 10:00 02/17/25 09:01 Hydrochlorothiazide 12.5mg PO 12.5 mg DAILY ANITA Administration Protocol Lactic Acid 1 applic 02/17/25 10:00 02/17/25 09:06 Ammonium Lactate 225 Gm Bottle TOPICAL 1 applic BID ANITA Administration Protocol Magnesium Citrate 300 ml 02/16/25 21:23 Magnesium Citrate 300 Ml PO DAILY PRN Constipation Melatonin 3 mg 02/17/25 22:00 Melatonin 3 Mg Tablet PO QHS ANITA Metformin HCl 500 mg 02/17/25 08:00 02/17/25 09:01 Metformin Hcl 500 Mg Tablet PO 500 mg BIDCM ANITA Administration Pantoprazole Sodium 40 mg 02/17/25 10:00 02/17/25 09:02 Pantoprazole Sodium 40 Mg Tablet PO 40 mg DAILY ANITA Administration Senna/Docusate Sodium 1 tablet 02/16/25 22:00 02/17/25 09:07 Senna/Docusate Sodium 1 Tablet PO 1 tablet BID ANITA Administration Tuberculin PPD 0.1 ml 02/24/25 10:00 Tuberculin,Purif.Prot.Deriv. 50 Tu/Ml Vial ID 02/24/25 10:01 X1 ONE Problem List Hyperlipidemia, unspecified (Acute) Erectile dysfunction (Acute) Debility (Acute) Diabetes mellitus, type 2 (Acute) Hypertension (Chronic) Stroke (Acute) Vital Signs Temp Pulse Resp BP Pulse Ox O2 Del Method O2 Flow Rate 97.8 F 64 17 164/71 H 95 Room Air 3 02/17/25 08:53 02/17/25 08:53 02/17/25 08:53 02/17/25 08:53 02/17/25 08:53 02/17/25 08:53 02/17/25 04:27 Oxygen Flow Rate (L/min) 3 Oxygen Delivery Method Room Air Weight: 89.811 kg Body Mass Index (BMI) 27.6 Sodium 138 mmol/L (133-145) 02/17/25 05:26 Potassium 4.1 mmol/L (3.3-5.1) 02/17/25 05:26 Chloride 105 mmol/L (98-108) 02/17/25 05:26 Carbon Dioxide 24.1 mmol/L (21.0-32.0) 02/17/25 05:26 Anion Gap 9 (5-15) 02/17/25 05:26 BUN 40 mg/dL (4-19) H 02/17/25 05:26 Creatinine 1.56 mg/dL (0.70-1.20) H 02/17/25 05:26 Est GFR (MDRD) Non-Af 44 (>60) L 02/17/25 05:26 BUN/Creatinine Ratio 25.4 RATIO (10-20) H 02/17/25 05:26 Glucose 149 mg/dL (70-99) H 02/17/25 05:26 Assessment/Plan: 1. Pain: acetaminophen 1000mg PO Q6H PRN pain 1-10. Resident has had 2 doses so far for pain scores of 3-4 for back and generalized pain. Check LFTs if resident develops symptoms of hepatoxicity. Consider monitoring LFTs if patient using > 3 gm/day of acetaminophen for prolonged period. Do not exceed 4000 mg in 24 hours. Monitor pain scores before/after prn administration for response, PRN pain medication usage, symptoms of pain/resident distress and ability to participate in therapy. 2. Bowel: senna/docusate 1T PO BID and magnesium citrate 300mL PO daily PRN constipation. Resident has not used any prn doses at this time. Last document bowel movement: 02/16/25. Monitor for usage of prn medications, abdominal pain, frequency of bowel movements, diarrhea. Recommend holding bowel regimen if resident develops diarrhea. 3. DVT prophylaxis: enoxaparin 40mg SC daily. Monitor for symptoms of VTE (new onset leg pain, swelling, erythema, SOB, chest pain, hypoxia), bleeding, hemoglobin (last 10.6g/dL), platelets (last 193,000). Enoxaparin is a renally dosed medication. CrCl estimated =38mL/min. Dose appropriate for current renal function. Monitor serum creatine periodically. 4. Hypertension: amlodipine 10mg PO daily and hydrochlorothiazide 12.5mg PO daily. Monitor for signs of peripheral edema, palpitations, arrhythmias, or abdominal pain. Monitor for dizziness, polyuria, electrolyte imbalances (last K = 4.1mmol/L, last Na = 138mmol/L), or signs of hypovolemia and dehydration. 5. Stroke: aspirin 81mg PO daily. Monitor for S/S bleeding/bruising/stroke, hemoglobin, or falls. Upset stomach may occur. 6. Hyperlipidemia: atorvastatin 40mg PO QHS. Monitor for myopathy (muscle pain, tenderness, weakness) elevated creatine kinase concentrations and rhabdomyolysis. GI adverse reactions may occur (dyspepsia, diarrhea, abdominal pain, flatulence, nausea), lipid panel (last 02/12/25). 7. Diabetes Mellitus II: metformin 500mg PO BIDCM. New diagnosis, monitor blood sugar (range 113-192), GFR (last 44mL/min), hemoglobin A1c (last 8.1% on 02/11/25), GI side effects, hypoglycemia, B12 levels, lactic acidosis and weight changes. 8. GERD: pantoprazole 40mg PO daily. Monitor GI effects, bowel function, hypersensitivity, and electrolyte imbalances. Monitor for diarrhea (consider possibility of C. diff if develops). Consider serum magnesium level and B12 level with long-term use if indicated. If clinically appropriate, consider dose reduction/weaning of medication due to jail risks of C. diff and fractures ([place]). 9. Insomnia: melatonin 3mg PO QHS. Monitor for sleep habits, mood changes, and excessive daytime drowsiness. 10. Venous stasis dermatitis of legs - Lac-Hydrin topical BID. Monitor for skin irritation, discoloration, or dryness Assessment/Plan for indications treated with psychotropic medications: Resident is not prescribed scheduled or prn psychotropic medications at the time of this drug regimen review. Medical chart and medication regimen reviewed. The following medication irregularities or issues were identified: No recommendations for resident at this time. Date Date of Note: 02/17/25 Documented by User: Dr. Kyle Juarez MD 02/17/25 14:59 TCU RX Drug Regimen Review Provider Comments Provider responsibility Provider Comments to Recommendations by Pharmacy Agree
[2025-02-17] MEDS: MELATONIN 3 MG TABLET PO (22:10)
[2025-02-18 09:31] VITALS: BP 137/57; PULSE 67; RESP 18; TEMP 36.6; O2SAT 97
[2025-02-18] MEDS: Ammonium Lactate 225 gm Bottle 1 APPLIC TOPICAL ×2 (09:34→22:10)
[2025-02-18] MEDS: Senna/Docusate Sodium 1 Tablet PO (09:39)
[2025-02-18 20:00] VITALS: PULSE 70; O2SAT 98
[2025-02-18] MEDS: MELATONIN 3 MG TABLET PO (22:10)
[2025-02-19 06:38] VITALS: PULSE 60; O2SAT 98
[2025-02-19] MEDS: Ammonium Lactate 225 gm Bottle 1 APPLIC TOPICAL ×2 (09:56→22:08)
[2025-02-19 16:00] VITALS: BP 153/58; PULSE 55; RESP 18; TEMP 36.9; O2SAT 95
[2025-02-19] MEDS: MELATONIN 3 MG TABLET PO (22:08)
[2025-02-20 07:53] VITALS: BP 173/61; PULSE 56; RESP 16; TEMP 36.8; O2SAT 94
[2025-02-20] MEDS: Ammonium Lactate 225 gm Bottle 1 APPLIC TOPICAL ×2 (07:56→20:04)
[2025-02-20] MEDS: Senna/Docusate Sodium 1 Tablet PO ×2 (08:03→20:04)
--- NOTE | 2025-02-20 12:49 | NURSING ---
Offered covid vaccine, VIS provided. Resident declines.
--- NOTE | 2025-02-20 15:10 | CASEMGMT ---
Addendum entered by Alena Thomas 02/20/25 16:31: [facility] can accept. Original Note: Social Work Insurance issued LCD 02/22, DC 02/23 SW presented to pt's room, where Adrianne and her SO was present. Pt granted SW to speak in front of visitors. SW provided NOMNC to pt and educated to appeal rights. Pt verbalized understanding and denied appeal. Pt is agreeable to DC. SW offered skilled HHC. Pt and Adrianne agreeable. SW provided list of skilled HHC agencies within geographical area, [place] with insurance, that include quality and resource data via [employer] guide. SW inquired about pt's PCP, who is Dr. Sotero Sarabia. SW educated that pt will likely need to see Dr. Sarabia in the office prior to Dr signing HHC orders. SW to advise the community relations assistant to schedule an appt to determine SOC with HHC. Pt/Adrianne expressed understanding. 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 ROSANNA inquired about DME needs. Adrianne identified pt will need a FWW and 3-in-1 commode at [place]. SW to coordinate through [facility] and have those items delivered to the pt's room prior to [place]. Adrianne appreciative. - Adrianne notified this worker of HHC preferences. First choice is [facility]. ROSANNA phoned referral to [facility] for PT/OT/ST/SN/SAL/SW. ROSANNA sent referral to [facility] via [employer]. Plan: DC home with support 02/23, C PT/OT/ST/SN/SAL/SW, FWW, 3-in-1 commode Alena Thomas SPECIAL EFFECTS ARTIST CURB BUILDER
--- NOTE | 2025-02-20 19:08 | PCM.DC.SUM ---
Providers Date of Admission: 02/16/25 Primary Care Physician: Dr. Sotero Sarabia MD Reason For Visit: CVA Diagnosis Discharge Diagnosis (1) Debility: Status: Acute Code(s): R53.81 - Other malaise (2) Stroke: Status: Acute Code(s): I63.9 - Cerebral infarction, unspecified (3) Hypertension: Status: Chronic Code(s): I10 - Essential (primary) hypertension (4) Diabetes mellitus, type 2: Status: Acute Code(s): E11.9 - Type 2 diabetes mellitus without complications (5) Erectile dysfunction: Status: Acute Code(s): N52.9 - Male erectile dysfunction, unspecified (6) Hyperlipidemia, unspecified: Status: Acute Code(s): E78.5 - Hyperlipidemia, unspecified Plan 84 year old male with below past medical history hospitalized for right ana stroke, complicated by hypertension, undiagnosed type 2 diabetes, admitted to TCU with debility, here for rehabilitation, strengthening, prior to discharge home alone. Debility - PT/OT. Dysphagia - ST. Pain - Tylenol 1000mg q6 prn pain (1-10). Bowel - senna/colace 1 tablet bid, Magnesium citrate 300mL daily prn. Adult immunization - Administer pneumonia vaccine, covid vaccine, flu vaccine as appropriate. DVT prophylaxis - Lovenox 40mg sc daily. Hypertension - Amlodipine 10mg daily, HCTZ 12.5mg daily. Stroke - Aspirin 81mg daily. Hyperlipidemia - Atorvastatin 40mg qhs. Diabetes Mellitus II - Metformin 500mg bid, monitor blood sugar. GERD - Pantoprazole 40mg daily. Neuropathy - Monitor. Medications at Discharge Home Medications aspirin 81 mg chewable tablet 81 mg PO BREAKFAST [employer] health #0 tabs 02/16/25 acetaminophen 500 mg tablet 1,000 mg (2 x 500 mg) PO Q6H PRN PRN Pain Score 1-10 #0 tabs 02/20/25 amlodipine 10 mg tablet 10 mg PO DAILY 30 days #30 tabs 02/20/25 atorvastatin 40 mg tablet 40 mg PO QHS 30 days #30 tabs 02/20/25 hydrochlorothiazide 12.5 mg capsule 12.5 mg PO DAILY 30 days #30 caps 02/20/25 metformin 500 mg tablet 500 mg PO BIDCM 30 days #60 tabs 02/20/25 pantoprazole 40 mg tablet,delayed release 40 mg PO DAILY 30 days #30 tabs 02/20/25 Hospital Course Operations None Procedures None Summary of Care Provided Minutes Spent on Discharge: 35 Hospital Course: 84 year old male with below past medical history hospitalized for right ana stroke, complicated by hypertension, undiagnosed type 2 diabetes, admitted to TCU with debility, here for rehabilitation, strengthening, prior to discharge home alone. Discharge home with support 02/23/2025, [facility] PT/OT/ST/SN/SAL/SW, FWW, 3-in-1 commode. FWW: Patient is unsafe to use a cane and requires a walker for ambulation in the home and the community. 3-in-1 commode: Patient is confined to a single room unable to safely access toilet. Patient is confined to one level of the home environment and there is no toilet on that level. Physical Exam Const alert General Appearance: cooperative HEENT normocephalic Eyes PERRL and EOMs intact bilaterally Neck supple, no JVD and no carotid bruits Resp normal respiratory effort, normal air movement and clear to auscultation bilaterally Cardio regular rate and regular rhythm GI normal to inspection, nondistended, normoactive bowel sounds, non-tender and non-distended Extremity normal capillary refill General Extremity: Negative for edema Skin no rashes or lesions noted General Skin Exam: no breakdown Psych affect normal Appearance: appropriate Weight / BMI Weight Weight: 89.811 kg Body Mass Index (BMI) 27.6 ABG / Lab / Microbiology Data 02/17/25 05:26 02/17/25 05:26 Laboratory: Laboratory Results - last 24 hr 02/20/25 06:05: POC Glucose 148 H D/C Instructions Discharge Activity: Return to Normal Activity, May Shower and Use Walker Weight Bearing Status: Weight bearing as tolerated Call your doctor if you observe: Fever of 101 or Higher, Inability to urinate, Inability to have a bowel movement, Shortness of breath, Dizziness, Fainting spells, Swelling in the ankles, Chest pain and Uncontrolled pain DC O2, CPAP, BIPAP Needs Home O2 Discharge instructions: No Additional Instructions: Discharge home with support 02/23/2025, [facility] PT/OT/ST/SN/SAL/SW, FWW, 3-in-1 commode. FWW: Patient is unsafe to use a cane and requires a walker for ambulation in the home and the community. 3-in-1 commode: Patient is confined to a single room unable to safely access toilet. Patient is confined to one level of the home environment and there is no toilet on that level. Please Follow Up With: Luis Mora MD When: 4 weeks. Meaningful Use Info Meaningful Use Meaningful Use Diagnoses (Choose all that apply): Ischemic CVA CVA Therapy Assessed for PT,OT and/or ST?: Yes Ischemic Stroke Antithrombotic order at d/c?: Yes Dx of Atrial fib/flutter?: No Statins at discharge?: Yes Primary Dx Acute Ischemic CVA?: Yes IV thrombolytic ordered during stay?: No Reason IV thrombolytic not ordered: Treatment not Indicated Discharge Plan Admission Admit Date/Time: 02/16/25 18:48 Primary Reason for Your Visit: Debility. Attending Provider: Kyle Juarez Chi Primary Care Provider: Sotero Sarabia Instructions Additional Instructions / Restrictions: Discharge home with support 02/23/2025, [facility] PT/OT/ST/SN/SAL/SW, FWW, 3-in-1 commode. FWW: Patient is unsafe to use a cane and requires a walker for ambulation in the home and the community. 3-in-1 commode: Patient is confined to a single room unable to safely access toilet. Patient is confined to one level of the home environment and there is no toilet on that level. Discharge Orders/Prescriptions Prescriptions: New atorvastatin 40 mg Tablet 40 mg PO QHS 30 Days Qty: 30 0RF metformin 500 mg Tablet 500 mg PO BIDCM 30 Days Qty: 60 0RF acetaminophen 500 mg Tablet 1,000 mg PO Q6H PRN PRN (Reason: Pain Score 1-10) Qty: 0 0RF amlodipine 10 mg Tablet 10 mg PO DAILY 30 Days Qty: 30 0RF pantoprazole 40 mg Tablet,Delayed Release (Dr/Ec) 40 mg PO DAILY 30 Days Qty: 30 0RF hydrochlorothiazide 12.5 mg Capsule 12.5 mg PO DAILY 30 Days Qty: 30 0RF Continued aspirin 81 mg Tablet,Chewable 81 mg PO BREAKFAST Qty: 0 0RF Discontinued atorvastatin 40 mg Tablet 40 mg PO QHS Qty: 0 0RF metformin 500 mg Tablet 500 mg PO BIDCM Qty: 0 0RF amlodipine 10 mg Tablet 10 mg PO DAILY Qty: 0 0RF pantoprazole 40 mg Tablet,Delayed Release (Dr/Ec) 40 mg PO DAILY Qty: 0 0RF hydrochlorothiazide 12.5 mg Capsule 12.5 mg PO DAILY Qty: 0 0RF Referrals / Follow Up: Sotero Sarabia MD [Primary Care Provider, Family Practice] - 03/01/25 8:50 am Disposition Disposition (needs filled in before D/C Order can be placed): Home Health Service
[2025-02-20] MEDS: MELATONIN 3 MG TABLET PO (20:05)
[2025-02-20 20:30] VITALS: PULSE 65; RESP 16; O2SAT 96
[2025-02-21 09:33] VITALS: BP 168/66; PULSE 66; RESP 16; TEMP 36.9; O2SAT 95
[2025-02-21] MEDS: Ammonium Lactate 225 gm Bottle 1 APPLIC TOPICAL ×2 (09:39→22:50)
[2025-02-21 18:00] VITALS: BMI 28.7
[2025-02-21 20:00] VITALS: PULSE 56; O2SAT 97
[2025-02-21] MEDS: MELATONIN 3 MG TABLET PO (22:50)
[2025-02-22 06:41] VITALS: PULSE 68; O2SAT 95
[2025-02-22] MEDS: Ammonium Lactate 225 gm Bottle 1 APPLIC TOPICAL ×2 (09:22→22:26)
--- NOTE | 2025-02-22 09:52 | CASEMGMT ---
Social Work IDT met with patient at bedside, then Adrianne participated via conference call for care plan meeting. Discussed patient's progress in PT/OT/ST/SN/RDN. Confirmed DC 02/23. SW provided glucometer script to provide to pharmacy for supplies and glucometer. FWW and BSC have already been delivered to the pt's room for DC. [facility] accept and SOC is 02/24. No other issues noted. 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
[2025-02-22 12:35] VITALS: BP 153/53; PULSE 64; RESP 18; TEMP 36.8; O2SAT 96
[2025-02-22] MEDS: MELATONIN 3 MG TABLET PO (22:27)
[2025-02-23 06:48] VITALS: PULSE 60; O2SAT 94
[2025-02-23] MEDS: Ammonium Lactate 225 gm Bottle 1 APPLIC TOPICAL (07:58)
[2025-02-23 08:00] VITALS: BP 169/55; PULSE 61; RESP 16; TEMP 36.8; O2SAT 95
[2025-02-23 12:55] VITALS: BP 149/63; PULSE 60; RESP 16; TEMP 36.8; O2SAT 16
== END 2025-02-23 12:45 | disposition home health service (06) | DRG 57 ==
PROVIDERS: Admitting Provider Family Medicine Geriatric Medicine; PCP Family Medicine; Visit Provider Family Medicine Geriatric Medicine
DX: I69.320 Aphasia following cerebral infarction (principal); E11.40 Type 2 diabetes mellitus with diabetic neuropathy, unspecified; I10 Essential (primary) hypertension; K21.9 Gastro-esophageal reflux disease without esophagitis; I87.2 Venous insufficiency (chronic) (peripheral); E78.5 Hyperlipidemia, unspecified; G47.00 Insomnia, unspecified; Z79.82 Long term (current) use of aspirin; Z79.899 Other long term (current) drug therapy; Z79.84 Long term (current) use of oral hypoglycemic drugs
CPT/HCPCS: 36415; 80048; 82962; 85025; 92507; 92523; 92526; 92610; 97110; 97116; 97162; 97166; 97530; 97535; 97802

== ENCOUNTER 2025-03-22 09:08 | Outpatient (RCR) | payer MEDICARE, SELFPAY ==
--- NOTE | 2025-03-22 10:05 | HP.PTEVAL_ITS ---
Patient's Visit Information Visit Information Visit Information: MERCED ERICKSON is a 85 year old M referred to Physical Therapy by Dr. Sotero Sarabia MD with a diagnosis of CVA. Date of Evaluation: 03/22/25 Physical Therapist: Sotero Aceves, DPT, OCS, CSCS Visit Plan Plan: Recommended pt use rollator at all timees. He is stubborn and does not wish to have therapy as he feels back to his pre stroke level adn is too busy and does not see the benefit despite my eeducation. Agreeable to being active at home and continuing in his current level of funciton. No skilld PT desired. Subjective Subjective: Grddtr present with him and pushes him back in WC. 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 had a stroke at [facility] in [place] trip, and 7:00 that night while giving another a ride [place] and R eye started hurting. Then R>L fingers got tingly. Gila merlos was called and slept. Woke up the next morning and police called jann since he did not answer phone. Squad came to house while sitting in chair. Took to ER. Walking was worse adn more dangerous. Always walkeed with limp. Scanned for stroke and has HTN and DM which he never knew prior. Treated with overnight stay and then 2 weeks in rehab for a week. Worked on difficulty walking with left leg feeling heavy. Prior was walking with out AD. Used cart in store. Stroke was 02/20 and been home for a couple weeks. L leg still feels heavy maybe a bit but grd dtr adn him say he is fucnitoning as prior to the stroke. Holds onto things at home. Lives alone in one story with no steps, No ad needed but has cane and walker and WC. Basic ADLS dress, bath shower stepping into tub and has chair and grab bars. Gets meals himself. Grd dtr helps a normal amount. Driving since release and doctor said he could. Driving [place] now. 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 Has to move. Has neuropathy but not sure why. Objective Objective: Pushed b ack to eval by grd dtr in WC. In and out I, walks up tall I with lack of weight shift but relatively safe. Transfers chair requires UE due to lak of FW weight shift and weakness.. Steps with onee rail I up and down reciprocally with some mild weakness in L LE but fincitonal. L LE 4-/5 strenght adn R is 4/5. coordination to reciprocal toe and heel tap is at deficit likely due to alf neuropathy which he has had for long time as he bever went to doctor prior to this. reflexes 1/3 patella dn achilles B. sensation LE feet at deficit to gross light touch. Unable to heel raise without bending knees. Walks with rollator which he house officer at homee mod I and safe and fast with much more confidence, recommnded he use this. shins and lower leg philomena and mottld and edematous scarring but pt says this is much improved from what it used to be and doctor is aware. Balance/Special Test Scores Functional Gait Assessment Score: 21 % Disability: 30.0000 Lower Extremity Functional Score: 41 TUG Test Time Seconds: 22 30 Second Chair Rise Test Seconds: 6 Rehabilitation Potential Physical Therapy Diagnosis: weakness L and lack of weight shift likeely due to neuropathy causing balance slight deficits. Anticipated Interventions Text: Thank you for the opportunity to evaluate your patient. For Medicare and Medicare HMO plans, please review the plan of care and approve it. It will need to be FAXED BACK to us at [phone] for Medicare purposes. For Medicare only, by signing this I certify the plan of care. Please let me know if there are questions or concerns regarding this plan of care. Physician Signature: Date:
--- NOTE | 2025-03-22 10:38 | HP.OTEVAL_ITS ---
Patient's Visit Information Visit Information Visit Information: MERCED ERICKSON is a 85 year old M, referred to Occupational Therapy by Dr. Sotero Sarabia MD, with a diagnosis of CVA. Date of Evaluation: 03/22/25 Occupational Therapist: Mady Contreras Subjective Subjective: This 85 year old male is here with friend Adrianne who helps serves as historian. Pt with dx of CVA which occured Feb 22 or . Started with eye hurting went to bed then next day to hospital spent approx 2 weeks in hospital then went home. Did do rehab while in the hospital. Pt did have in home therapy which he completes x2 sessions then cancelled it due to pt returning to work. 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 Pt does report he does not notice a difference in his strength or coordination at this time does admit to slight weakness of LLE however states he is doing well. No falls in past year. Objective Objective/Observation: pt arrives appears well walks to OT department with 4WW no noted swelling skin intact ROM ROM Comments: all ROM WFL Strength Shoulder: shoulder flexion R 26# L 26# Elbow: bicep L 39# R 37# tricep L 24# R 24# Cuff Setter Lockstitch: L 30# R 30# Lateral Pinch: L 10# R 9# Tripod Pinch: L 12# R 12# Edema Other: none Sensation Sensation Comments: does have slight impairment in FMC however states this was prior to stroke it is due to neuropathy in hands --- has been dealing with this for years Movement Movement Comments: finger to nose assessment 5/5 L side no dysmetria noted Quick DASH-Disab of Arm,Shoulder& Hand Quick DASH Score: 11.3625 Rehabilitation General Assessment: This 85 year old male arrives with dx of CVA. Pt presents with in tact ROM B sides and equal strength on B sides as per fet peak dynamometer as well as pinch gauge. Pt denies increased issue with fine motor abilities does have long standing history of impairment in fine motor due to neuropathy of B hands. Pt with no falls in past year and appears safe with transfers. Pt is currently functioning at baseline and therefore no need for skilled OT services. This OT did provide pt with UB HEP for completion at home in which he reports his friend can assist him with. Eval only this date due to at baseline and per pt request. Rehabilitation Potential: Good Anticipated Interventions Other Interventions: n/a Visit Plan General Plan: eval only TEXT: Thank you for the opportunity to evaluate your patient. For Medicare and Medicare HMO plans, please review the plan of care and approve it. It will need to be FAXED BACK to us at [phone] for Medicare purposes. Please let me know if there are questions or concerns regarding this plan of care. Physician Signature: Date:
--- NOTE | 2025-03-22 10:38 | HP.OT.NRP ---
Patient Information Patient Information: MERCED ERICKSON was seen in my office for initial evaluation on 03/22/25. The following Plan of Care was established for this patient: Anticipated Interventions Other Interventions: n/a Last Seen Last Seen: This patient was last seen in our office 03/22/25. Pertinent comments regarding their Occupational therapy will appear below: Pt seen for an OT eval with dx of CVA. Pt functioning at baseline for assessment and eval only complete with pt in agreeance. At this point I will be discontinuing this patient from occupational therapy. I would be happy to see this patient again in the future if found appropriate by the physician. Thank you! Mady Contreras
== END 2025-03-22 19:00 | disposition home or self-care (01) ==
LOC: PT 09:08
PROVIDERS: PCP Family Medicine; Visit Provider Family Medicine
DX: I69.344 Monoplegia of lower limb following cerebral infarction affecting left non-dominant side (principal); G62.9 Polyneuropathy, unspecified
CPT/HCPCS: 97162; 97166